=== PATIENT | female | born 1955 | race African-American/Black ===

== ENCOUNTER 2018-02-14 20:22 | Observation (INO) ==
--- NOTE | 2018-02-14 20:37 | PROVIDER DOCUMENTATION ---
HPI-Neurological Disorder - General Stated Complaint: POSS STROKE SX Time Seen by Provider: 02/14/18 20:36 Source: patient Allergies/Adverse Reactions: Patient Allergies Allergy/AdvReac Type Severity Reaction Status Date / Time No Known Allergies Allergy Verified 04/07/17 16:45 Home Medications: Home Medication List Medication Instructions Recorded Confirmed Last Taken Type Cilostazol 100 mg PO DAILY 03/30/14 04/14/17 04/07/17 History Docusate Sodium [Stool Softener] 100 mg PO DAILY 03/30/14 04/14/17 04/07/17 History Potassium Chloride [Klor-Con M20] 1 each PO DAILY 03/30/14 04/14/17 04/07/17 History Amlodipine Besylate 1 tab PO BID 02/17/17 04/14/17 04/07/17 History Gabapentin 600 mg PO TID 02/18/17 04/14/17 04/07/17 History Hydralazine [Apresoline] 75 mg PO TID #90 tab 03/08/17 04/14/17 04/07/17 Rx Pantoprazole [Protonix] 40 mg PO QPM #30 tab 03/08/17 04/14/17 04/06/17 Rx Apixaban [Eliquis] 5 mg PO DAILY 03/13/17 04/14/17 04/07/17 History Aspirin 81 mg PO DAILY chewtab 03/22/17 04/14/17 04/07/17 Rx Polyethylene Glycol 3350 [Miralax] 17 gm PO BID PRN 04/08/17 04/14/17 Unknown History Allopurinol 100 mg PO DAILY 04/13/17 04/13/17 Unknown History Furosemide 40 mg PO DAILY 04/13/17 04/13/17 Unknown History Metoprolol [Lopressor] 25 mg PO DAILY 04/13/17 04/13/17 Unknown History Acetaminophen [Tylenol] 650 mg PO Q6H PRN PRN tablet 04/20/17 Unknown Rx Hydrocodone/Acetaminophen [[place] 1 ea PO Q6H PRN PRN #40 tab 04/30/17 Unknown Rx 7.5-325 Tablet] Insulin Glargine [Lantus] 40 unit SUBQ QHS #1 insuln.pen 05/01/17 Unknown Rx - History of Present Illness-Neuro Nature of Presenting Problem: Patient is a 62 year old black female with history of CVA with residual left sided weakness,atrial fibrillation, CHF,diabetes, and HTN who presents with worsening generalized weakeness, anorexia, and reported slurred speech for past 1 week. Review of Systems - Adult - REVIEW OF SYSTEMS - ADULT Constitutional: denies: chills, fever Eyes: denies: blurred vision Ears, Nose, Mouth & Throat: reports: see HPI Cardiovascular: denies: chest pain, orthopnea Respiratory: denies: shortness of breath Gastrointestinal: denies: abdominal pain, diarrhea, vomiting Genitourinary: reports: no symptoms reported Musculoskeletal: reports: see HPI Integumentary: reports: other (chronic left diabetic heel ulcer) Psychiatric: reports: anxiety Endocrine: reports: see HPI Hematologic/Lymphatic: reports: no symptoms reported Allergic/Immunologic: reports: no symptoms reported All Other Systems: Reviewed and Negative Past History - Adult - PAST MEDICAL HISTORY-ADULT Review of Records: reports: Old Records Reviewed, Nursing Assessment Review, Medications Reviewed, Social history reviewed & non-contributory. Major Childhood Illnesses: reports: denies history Cardiovascular: reports: A-Fib, CHF, HTN Respiratory: reports: denies history Gastrointestinal: reports: denies history Obstetrical/Gynecological: reports: denies history Genitourinary: reports: denies history Musculoskeletal: reports: denies history Neurological: reports: CVA Endocrine/Immune: reports: Diabetes Other Conditions: reports: denies history - PRIOR SURGERIES/PROCEDURES Surgical/Procedure History: reports: other (right BKA) - IMMUNIZATION STATUS Childhood Immunizations: See Nurse Assessment Flu Vaccine: See Nurse Assessment - FAMILY HISTORY Family History: reviewed, not pertinent Physical Exam- Neurological - Physical Exam-Neuro General Appearance: alert, no apparent distress, obese, other (decreased skin turgor,dry membranes) Eye Exam: bilateral eye: PERRL HENMT: pharynx normal Head Injury: no evidence of injury Neck: supple Respiratory: lungs clear, no accessory muscle use, decreased breath sounds. negative: respiratory distress, accessory muscle use Cardiovascular: irregularly irregular Abdominal Exam: non tender, soft Peripheral Pulses: radial (R): 2+, radial (L): 2+ Extremity: other (chronic left heel ulcer) Motor/Sensory: other (weakness of left upper extremity (old)) Neurologic: other (left upper extremity weakness) Integumentary: normal color Psych/Mental Status: anxious - Glascow Coma Scale Best Eye Response: (4) open spontaneously Best Verbal Response: (5) oriented Best Motor Response: (6) obeys commands Total Glascow Score: 15 Progress - PLAN OF CARE/RESULTS Progress/Plan/Lab Results: Vital Signs - 8 hr 02/14/18 20:44 Pulse Rate 91 H Respiratory Rate 19 Blood Pressure 149/102 O2 Sat by Pulse Oximetry 95 Laboratory Results - last 24 hr 02/14/18 02/14/18 02/14/18 21:25 21:25 21:25 WBC 5.83 RBC 5.99 H Hgb 16.9 H Hct 51.2 H MCV 85.5 MCH 28.2 MCHC 33.0 RDW Std Deviation 13.5 Plt Count 213 MPV 13.2 H Immature Gran % (Auto) 0.3 Neut % (Auto) 55.8 Lymph % (Auto) 28.5 [place] % (Auto) 14.2 H Eos % (Auto) 0.7 Baso % (Auto) 0.5 Immature Gran # (Auto) 0.02 Neut # (Auto) 3.25 Lymph # (Auto) 1.66 [place] # (Auto) 0.83 H Eos # (Auto) 0.04 Baso # (Auto) 0.03 Sodium 132 L Potassium 4.2 Chloride 96 L Carbon Dioxide 23 L Anion Gap 13 BUN 31 H Creatinine 1.8 H Estimated GFR/1.73 m2 28 BUN/Creatinine Ratio 17 Glucose 242 H Calculated Osmolality 279 Calcium 9.2 Total Bilirubin 0.40 AST 46 H ALT 24 Alkaline Phosphatase 152 H Creatine Kinase Troponin T Total Protein 7.1 Albumin 2.6 L Globulin 5.0 Albumin/Globulin Ratio 1.0 Urine Source Urine Color Urine Clarity Urine pH Ur Specific [place] Urine Protein Urine Ketones Urine Blood Urine Nitrite Urine Bilirubin Urine Urobilinogen Urine Microscopic RBC Urine WBC Urine Microscopic WBC Ur Epithelial Cells Urine Bacteria Urine Glucose Influenza A (Rapid) NEGATIVE Influenza B (Rapid) NEGATIVE 02/14/18 02/14/18 02/14/18 21:25 21:25 21:25 WBC RBC Hgb Hct MCV MCH MCHC RDW Std Deviation Plt Count MPV Immature Gran % (Auto) Neut % (Auto) Lymph % (Auto) [place] % (Auto) Eos % (Auto) Baso % (Auto) Immature Gran # (Auto) Neut # (Auto) Lymph # (Auto) [place] # (Auto) Eos # (Auto) Baso # (Auto) Sodium Potassium Chloride Carbon Dioxide Anion Gap BUN Creatinine Estimated GFR/1.73 m2 BUN/Creatinine Ratio Glucose Calculated Osmolality Calcium Total Bilirubin AST ALT Alkaline Phosphatase Creatine Kinase 136 Troponin T 0.054 Total Protein Albumin Globulin Albumin/Globulin Ratio Urine Source CLEAN CATCH Urine Color YELLOW Urine Clarity VERY CLOUDY A Urine pH 5.0 Ur Specific [place] 1.015 Urine Protein 3+(500 mg/dL) A Urine Ketones NEGATIVE Urine Blood 1+ A Urine Nitrite NEGATIVE Urine Bilirubin NEGATIVE Urine Urobilinogen NORMAL Urine Microscopic RBC <10 Urine WBC NEGATIVE Urine Microscopic WBC <10 Ur Epithelial Cells <10 Urine Bacteria 4+ Urine Glucose 2+(250 mg/dL) A Influenza A (Rapid) Influenza B (Rapid) Orders Category Date Time Status CT HEAD W/O CONTRAST [CT] Stat Exams 02/14/18 20:37 Completed CBC WITH ELECTRONIC DIFF [HEME] Stat Lab 02/14/18 21:25 Completed CK PROFILE [SP CHEM] Stat Lab 02/14/18 21:25 Completed CMP [COMPREHENSIVE METABOLIC PANEL] [CHEM] Stat Lab 02/14/18 21:[address] Stat Lab 02/14/18 21:25 Completed TROPONIN T Stat Lab 02/14/18 21:[address] W/POSS RFLX CULT [URINALYSIS] Stat Lab 02/14/18 21:25 Completed URINE CULTURE [RM] Routine Lab 02/14/18 22:13 Ordered 0.9% Sodium Chloride Inj [Ns] 1,000 ml Med 02/14/18 23:45 Ordered IV 125 mls/hr 0.9% Sodium Chloride Inj [Ns] 1,000 ml Med 02/14/18 22:08 Discontinued IV 999 mls/hr Labetalol Med 02/14/18 23:43 Once 20 mg IV NOW ONE Result Diagrams: 02/14/18 21:25 02/14/18 21:25 - EKG 1 Time of EKG reading by physician:: 22:04 EKG Read and Signed by:: Tyler Foster EKG Interpretation (*Must complete 3 of following elements*): Abnormal Rate: 91 Rhythm: atrial fibrillation QRS: LVH ST Wave: non-specific ST changes Comments: prolonged QT, no STEMI, - CT/MRI 1 CT Study: Head CT Results: chronic ishemic changes - CONSULTS/PCP/HOSPITALIST Notification #1 *Consult/PCP/Hospitalist*: Dr. Brock, hospitalist Time Discussed: 23:45 Consult Disposition: Admit Departure - Departure Date of Disposition Decision: 02/14/18 Time of Disposition Decision: 23:50 DIAGNOSIS: Dehydration, Hypertensive urgency, Slurred speech Acute renal failure Qualifiers: Acute renal failure type: unspecified Qualified Code(s): N17.9 - Acute kidney failure, unspecified Disposition: ADMITTED INPATIENT 09 Certified Medical Emergency: Emergent Condition: Stable Referrals and Follow-Ups: Rama Mcrae MD [Primary Care Provider] - - Critical Care Note This patient required my direct & personal management of CC.: No Attestation - Physician/ CHRISTIANO Attestation Patient care was provided by Advanced Practice Provider:: No The physician spent face to face time with patient:: Yes Advanced Practice Provider documentation review:: Supervising physician onsite and consulted in the evaluation and care of this patient. The physician did have a face to face encounter with the patient. - NIH Stroke Scale NIH Type: Initial Evaluation Level of Consciousness: 0-Alert LOC Questions (ask month and age): 0-Answers Both Correctly LOC Commands (ask to open & close eyes;make a fist, let go): 0-Obeys Both Correctly Best Gaze (horizontal eye movement): 0-Normal Visual (use finger movement, counting or visual threat): 0-No Visual Loss Facial Palsy (show teeth or raise eyebrows & close eyes tght: 0-Symmetrical Movement Motor Function-left arm: 2-Some Effort Against [place] Motor Function-right arm: 0-Normal Motor Function-right le-Normal Limb Ataxia([id number], or heel to ghosh): 0-No Ataxia Sensory(pin prick to face,arms,trunk,legs-compare side/side): 0-No Ataxia Best Language(name item/read sentence.Ex-Down to Earth): 0-No Aphasia Dysarthria(Pt read words or say words Ex.Mama,Tip-Top,Thanks: 1-Mild-Mod Slurring Words Extinction and Inattention: 0-Normal NIH Total Score: 3 Modified Lalo Score Criteria: 0-no symptoms
--- NOTE | 2018-02-14 21:20 | Diag Imaging Result Doc PS360 ---
EXAM: CT HEAD W/O CONTRAST - 02/14/2018 HISTORY: slurred speech TECHNIQUE: CT head without contrast COMPARISON: 03/04/2017 FINDINGS: There is encephalomalacia at the right occipital lobe similar to prior and compatible with old infarct. There are chronic microvascular ischemic changes. There is a 1.3 cm lacunar infarct at the left centrum semiovale which is more conspicuous compared to prior, but has well demarcated appearance suggesting otherwise old infarct. There is no acute-appearing infarct identified, although acute infarcts may not be immediately visible. There are atherosclerotic calcifications noted at the base the brain. There is no evidence of intracranial hemorrhage, mass effect, or midline shift. IMPRESSION: Chronic ischemic changes. No discrete acute process. No hemorrhage or mass effect. This exam was performed using automated exposure control, adjustment of mA or kV according to patient size, and/or use of iterative reconstruction technique. Electronically signed by Keven Medrano 02/14/2018 9:18 PM
[2018-02-14 21:42] LABS: BASO# 0.03 X1000 (0.0-0.2); BASO% 0.5 % (0.0-0.8); EOS# 0.04 X1000 (0.0-0.7); EOS% 0.7 % (0.0-10.0); HEMATOCRIT 51.2 % (37.0-47.0); HEMOGLOBIN 16.9 g/dL (12.0-16.0); IMM GRAN# 0.02 X1000 (0.0-0.04); IMM GRAN% 0.3 % (0.0-0.5); LYMPH# 1.66 X1000 (1.2-3.4); LYMPH% 28.5 % (20.5-51.1); MCH 28.2 PG (27-31); MCV 85.5 FL (81-99); MONO# 0.83 X1000 (0.11-0.59); MONO% 14.2 % (1.7-9.3); MPV 13.2 FL (7.4-10.4); NEUT# 3.25 X1000 (1.4-6.5); NEUT% 55.8 % (42.2-75.2); PLT 213 X1000 (130-400); RBC 5.99 XMIL (4.2-5.4); RDW 13.5 % (11.5-14.5); WBC 5.83 X1000 (4.8-10.8)
[2018-02-14 22:03] LABS: INFLUENZA A NEGATIVE (NEGATIVE); INFLUENZA B NEGATIVE (NEGATIVE)
[2018-02-14] MEDS ORDERED: NS 1,000 ML IV ONE ×2 (22:08→23:45)
[2018-02-14 22:12] LABS: BILIRUBIN URINE NEGATIVE (NEGATIVE); BLOOD URINE 1+ (NEGATIVE); CLARITY VERY CLOUDY (CLEAR); COLOR YELLOW; KETONE URINE NEGATIVE (NEGATIVE); LEUKOCYTES URINE NEGATIVE (NEGATIVE); NITRITE URINE NEGATIVE (NEGATIVE); SP GRAVITY URINE 1.015; URINE BACTERIA 4+ /HFP; URINE SOURCE CLEAN CATCH; UROBILINOGEN URINE NORMAL
[2018-02-14 22:13] LABS: ALBUMIN 2.6 g/dL (3.5-5.0); CALCIUM 9.2 mg/dL (8.8-10.2); CREATININE 1.8 mg/dL (0.5-0.9); POTASSIUM 4.2 mmol/L (3.5-5.1); TOTAL BILIRUBIN 0.4 mg/dL (0.20-1.00); TOTAL PROTEIN 7.1 g/dL (6.3-8.3); URINE EPITHELIAL CELLS <10 /HPF (<10); URINE RBC <10 /HPF (<10); URINE WBC <10 /HPF (<10)
[2018-02-14] MEDS ORDERED: LABETALOL IV ONE (23:43)
--- NOTE | 2018-02-15 00:56 | EKG Report ---
Test Performed on : 02/14/2018 10:03:56 PM Test Reason : cp Blood Pressure : / mmHG Vent. Rate : 091 BPM Atrial Rate : 096 BPM P-R Int : 000 ms QRS Dur : 084 ms QT Int : 400 ms P-R-T Axes : 000 051 244 degrees QTc Int : 492 ms Atrial fibrillation. Moderate voltage criteria for LVH, may be normal variant Marked ST abnormality, possible anterior subendocardial injury Prolonged QT Abnormal ECG When compared with ECG of 13-MAR-2017 18:16, Vent. rate has increased BY 34 BPM T wave inversion more evident in Lateral leads QT has lengthened Unconfirmed Result
[2018-02-15 09:15] LABS: BASO# 0.03 X1000 (0.0-0.2); BASO% 0.5 % (0.0-0.8); EOS# 0.06 X1000 (0.0-0.7); HEMOGLOBIN 15.7 g/dL (12.0-16.0); IMM GRAN# 0.01 X1000 (0.0-0.04); IMM GRAN% 0.2 % (0.0-0.5); LYMPH# 1.79 X1000 (1.2-3.4); LYMPH% 30.3 % (20.5-51.1); MCH 28.6 PG (27-31); MCHC 32.7 g/dL (33-37); MCV 87.6 FL (81-99); MONO# 0.81 X1000 (0.11-0.59); MONO% 13.7 % (1.7-9.3); NEUT# 3.21 X1000 (1.4-6.5); NEUT% 54.3 % (42.2-75.2); PLT 156 X1000 (130-400); RBC 5.48 XMIL (4.2-5.4); RDW 13.4 % (11.5-14.5); WBC 5.91 X1000 (4.8-10.8)
[2018-02-15 09:29] LABS: CALCIUM 8.3 mg/dL (8.8-10.2); CREATININE 1.3 mg/dL (0.5-0.9); POTASSIUM 2.9 mmol/L (3.5-5.1)
[2018-02-15] MEDS ORDERED: TYLENOL PO PRN (10:35)
[2018-02-15] MEDS ORDERED: MIRALAX PO PRN (10:35)
[2018-02-15] MEDS ORDERED: KLOR-CON PO ONE (10:47)
[2018-02-15] MEDS: LOPRESSOR PO SCH (11:05)
[2018-02-15] MEDS: ELIQUIS PO SCH ×2 (11:05→20:23)
[2018-02-15] MEDS: NORVASC PO SCH (11:06)
[2018-02-15] MEDS: ZYLOPRIM PO SCH (11:06)
[2018-02-15] MEDS: PLETAL PO SCH (11:06)
--- NOTE | 2018-02-15 11:33 | HISTORY AND PHYSICAL ---
PRIMARY CARE PHYSICIAN: Dr. Mcrae. CHIEF COMPLAINT: Worsening generalized weakness, anorexia, and slurred speech for 1 week that has progressively worsened. HISTORY OF PRESENTING ILLNESS: This is a 62-year-old female, who presents to [facility] ER with complaints of generalized worsening weakness, anorexia, and some slurred speech for 1 week that had progressively worsened. She has had a history of a CVA x1 in the past with left hemiplegia and uses an electric wheelchair at home for mobility. When she arrived to the emergency room, her blood pressure was 149/102. It got as high as 181/87. Her workup showed a sodium of 132, BUN of 31, creatinine 1.8. We did recheck of labs this morning that showed a potassium had dropped down to 2.90. Her urinalysis showed 4+ bacteria but otherwise negative. We did a CT of the head that was read as chronic ischemic changes, but no discrete acute process no hemorrhage or mass effect. She was admitted for further evaluation and treatment. PAST MEDICAL HISTORY: Chronic diabetic left heel ulcer that has had osteomyelitis in the past, AFib, diastolic congestive heart failure, peripheral arterial disease, a CVA with left hemiplegia, diabetes type 2, and chronic gout. PAST SURGICAL HISTORY: Port placement, right BKA, left heel debridement, cholecystectomy, and a left carotid endarterectomy. FAMILY HISTORY: Reviewed and noncontributory. SOCIAL HISTORY: She currently lives alone, but family checks on her daily. Denied any tobacco, alcohol, or illicit drug use. ALLERGIES: She has no known drug allergies. HOME MEDICATIONS: We will hold her Lasix 40 mg p.o. daily. Continue the following: Tylenol 650 mg p.o. q.6 hours p.r.n., allopurinol 100 mg p.o. daily, amlodipine 5 mg p.o. daily, Apixaban 5 mg p.o. b.i.d., cilostazol 100 mg p.o. daily, gabapentin 600 mg p.o. t.i.d., Lantus 40 units subcutaneous at bedtime, Lopressor 25 mg p.o. daily, MiraLAX 17 g p.o. daily, potassium 20 mEq p.o. daily. LABORATORY DATA: Showed a white blood cell count of 5.83, hemoglobin 16.9, hematocrit 51.2, platelets 213,000. Sodium 132, potassium 4.2, chloride 96, CO2 23, BUN of 31, creatinine 1.8. Glucose 242. Cardiac enzyme was negative. Repeat BMP this morning showed a sodium up to 138, but potassium dropped to 2.9. Creatinine is down to 1.3 with a BUN of 23, glucose 160. Urinalysis was negative except for 4+ bacteria. Influenza A and B were both negative. CT of the head showed chronic ischemic changes. No discrete acute process. No hemorrhage or mass effect. EKG: Atrial fibrillation at 91. REVIEW OF SYSTEMS: She denied any fever, chills, blurred vision, dizziness. She just had generalized weakness, some anorexia, some slurred speech. She denied any chest pain, coughing, shortness of breath abdominal pain, diarrhea, burning, or hurting with urination. PHYSICAL EXAMINATION: VITAL SIGNS: On arrival, she had a pulse of 91, respirations 19, blood pressure 149/102, saturating 95% on room air. GENERAL: This is a 62-year-old female, who is lying in the bed and answers questions appropriately. HENMT: Normocephalic, atraumatic. Normal ENT inspection. Oropharynx and nares are clear. Speech is clear at this time. No slurring noted. EYES: Pupils are equal, round, reactive to light and accommodation. Extraocular movements are intact. NECK: Normal inspection, normal range of motion. LUNGS: Clear to auscultation bilaterally with equal lung expansion and chest wall movement. HEART: Irregular rate and rhythm with atrial fibrillation, but is rate controlled, currently at 78. ABDOMEN: Soft, nontender, and nondistended. Bowel sounds are present x4 quadrants. MUSCULOSKELETAL: She has hemiparesis on the left side, but able to move her right side without difficulty. NEUROLOGICAL: She is at her baseline. Again, left-sided hemiparesis. ASSESSMENT: 1. Transient ischemic attack versus cerebrovascular accident. 2. Hypertension. 3. Acute kidney injury. 4. Dehydration. 5. Hypokalemia. PLAN: She was admitted to the medical unit, placed on pattern blood sugars with sliding scale insulin. Placed on telemetry. O2 per protocol. Neuro checks q.4 hours for 24 hours. Diabetic diet. We are going to check an MRI of the brain without contrast today. She has clonidine 0.1 mg p.o. q.4 hours p.r.n. Continue her home medications as previously identified. We are going to add a potassium 40 mEq p.o. x1 to her 20 mEq daily to equal 60. Recheck labs of a CBC, BMP in the a.m., and further orders after seen by attending. Dictated by NABIL Gray for Louis Brock MD cc: NABIL Gray MD Bhavna Gowda, MD
[2018-02-15] MEDS: NEURONTIN PO SCH ×2 (14:35→21:54)
--- NOTE | 2018-02-15 14:58 | Diag Imaging Result Doc PS360 ---
MRI BRAIN W/O CONTRAST - 02/15/2018 INDICATION: TIA vs CVA COMPARISON: Head CT 02/14/2018, brain MRI 03/05/2017 FINDINGS: There are numerous tiny scattered foci of restricted diffusion scattered throughout the cerebral hemispheres bilaterally. These are mainly in the watershed areas, in the cerebral deep white matter. No intracranial mass or hemorrhage. Stable old infarction with gliosis at the posterior right occipital lobe. Stable advanced periventricular white matter chronic microvascular disease. Midline structures are normal. IMPRESSION: There are numerous tiny areas of infarction mainly in the watershed areas of the cerebral hemispheres. This is compatible with insufficient cerebral perfusion. Electronically signed by Greg Salas 02/15/2018 2:56 PM
[2018-02-15] MEDS: NS 1,000 ML IV SCH (19:00)
[2018-02-15] MEDS: ASPIRIN EC PO SCH (19:00)
[2018-02-15] MEDS: BASAGLAR SUBQ SCH (20:23)
[2018-02-15] MEDS: HUMULIN R (PARKWAY) SUBQ SCH (20:24)
--- NOTE | 2018-02-15 23:54 | HISTORY AND PHYSICAL ---
ADDENDUM: Patient coming in for worsening weakness and dysarthria. She is very pleasant, very awake, alert. She seems fine. No major history. She does have a history of CVA. Her workup was really unremarkable. Nurse practitioner has evaluated her prior to my evaluation and has ordered an MRI which unfortunately shows multiple small areas of infarction, consistent with cerebral hypoperfusion. Clinically, though, she really does not have a change from her baseline exam, and she came in very dehydrated. I am not even sure this is related to hypotension, but in any case, clinically she seems well. We will continue hydration. I think she needs some further hydration. I think she probably needs CT angiography once we can get that established, hopefully by tomorrow, and carotid and echo if those have not been done in the last 6 months. We also need to continue anti-platelet therapy, and we will continue to monitor closely. She is already on Eliquis. I am not even really sure what else we can add, possibly a low-dose aspirin, and continue to follow. Her exam is nonfocal except for left-sided hemiparesis which is her usual state. Disposition is pending her clinical status. [id number] encounter note with Rahel Nance. cc: Louis Brock MD
[2018-02-16] MEDS: NS 1,000 ML IV SCH ×3 (04:31→18:40)
[2018-02-16] MEDS: NEURONTIN PO SCH ×4 (05:23→22:00)
[2018-02-16] MEDS: HUMULIN R (PARKWAY) SUBQ SCH ×5 (06:56→22:01)
[2018-02-16 07:07] LABS: HEMOGLOBIN A1C 6.9 % (4.8-6.0)
[2018-02-16 07:15] LABS: CALCIUM 8.3 mg/dL (8.8-10.2); POTASSIUM 2.9 mmol/L (3.5-5.1)
[2018-02-16 07:20] LABS: BASO# 0.03 X1000 (0.0-0.2); BASO% 0.5 % (0.0-0.8); EOS% 1.7 % (0.0-10.0); HEMATOCRIT 46.8 % (37.0-47.0); HEMOGLOBIN 15.2 g/dL (12.0-16.0); IMM GRAN# 0.01 X1000 (0.0-0.04); IMM GRAN% 0.2 % (0.0-0.5); LYMPH# 2.07 X1000 (1.2-3.4); LYMPH% 36.1 % (20.5-51.1); MCH 28.5 PG (27-31); MCHC 32.5 g/dL (33-37); MCV 87.8 FL (81-99); MONO# 0.67 X1000 (0.11-0.59); MONO% 11.7 % (1.7-9.3); MPV 13.2 FL (7.4-10.4); NEUT# 2.85 X1000 (1.4-6.5); NEUT% 49.8 % (42.2-75.2); PLT 168 X1000 (130-400); RBC 5.33 XMIL (4.2-5.4); RDW 13.4 % (11.5-14.5); WBC 5.73 X1000 (4.8-10.8)
[2018-02-16] MEDS: ZYLOPRIM PO SCH (10:13)
[2018-02-16] MEDS: PLETAL PO SCH (10:13)
[2018-02-16] MEDS: NORVASC PO SCH (10:13)
[2018-02-16] MEDS: LOPRESSOR PO SCH (10:13)
[2018-02-16] MEDS: ELIQUIS PO SCH ×2 (10:14→22:00)
[2018-02-16] MEDS: ASPIRIN EC PO SCH (10:14)
[2018-02-16] MEDS: KLOR-CON PO SCH (10:14)
[2018-02-16] MEDS: CATAPRES PO PRN (11:17)
--- NOTE | 2018-02-16 18:26 | ECHO REPORT ---
ORDER DATE: 02/16/2018 MEASUREMENTS: Left ventricular end-diastolic 3.8, end systolic diameter 2.6, septal thickness 1.2, posterior wall thickness 1.1, aortic root 2.8, left atrium 4.5. SUMMARY: 1. Fair quality study. 2. Very mild sclerosis of trileaflet aortic valve demonstrated with adequate aortic valve opening suggested on 2-dimensional images. Peak gradient across aortic valve was less than 10 mmHg. Mild to moderate mitral annular calcification is demonstrated. There is very mild mitral regurgitation. Tricuspid and pulmonic valves are without evidence of structural abnormality with mild to moderate tricuspid regurgitation. Estimated systolic PA pressure by Doppler is 55 to 60 mmHg suggesting moderate pulmonary hypertension. Aortic root is normal size. 3. Normal left ventricular chamber size with mild concentric left hypertrophy is demonstrated. Estimated left ventricular ejection fraction appears to be approximately 60%. No regional wall motion abnormalities are evident. Left atrium is mild to moderately enlarged. Right atrium is mildly enlarged. The right ventricle is normal in size with grossly preserved right ventricular systolic function. 4. No pericardial effusion. 5. Appearance of inferior vena cava suggests normal central venous pressure. 6. Rhythm during study appears to be atrial fibrillation. cc: MD Louis Ybarra MD
[2018-02-16] MEDS ORDERED: KLOR-CON PO ONE (19:00)
[2018-02-16] MEDS: BASAGLAR SUBQ SCH (22:00)
[2018-02-17] MEDS: NEURONTIN PO SCH (06:54)
[2018-02-17 07:27] LABS: BASO# 0.02 X1000 (0.0-0.2); BASO% 0.3 % (0.0-0.8); EOS# 0.08 X1000 (0.0-0.7); EOS% 1.1 % (0.0-10.0); HEMATOCRIT 46.2 % (37.0-47.0); HEMOGLOBIN 14.7 g/dL (12.0-16.0); IMM GRAN# 0.02 X1000 (0.0-0.04); IMM GRAN% 0.3 % (0.0-0.5); LYMPH# 2.26 X1000 (1.2-3.4); LYMPH% 32.4 % (20.5-51.1); MCH 28.2 PG (27-31); MCHC 31.8 g/dL (33-37); MCV 88.7 FL (81-99); MONO% 11.5 % (1.7-9.3); MPV 12.9 FL (7.4-10.4); NEUT% 54.4 % (42.2-75.2); PLT 205 X1000 (130-400); RBC 5.21 XMIL (4.2-5.4); RDW 13.5 % (11.5-14.5); WBC 6.98 X1000 (4.8-10.8)
[2018-02-17] MEDS: HUMULIN R (PARKWAY) SUBQ SCH ×2 (07:41→11:39)
[2018-02-17 08:06] LABS: AGAP 14; BUN 13 mg/dL (8-22); CALCIUM 8.3 mg/dL (8.8-10.2); CHLORIDE 104 mmol/L (98-107); CHOLESTEROL 267 mg/dL (0-200); COSMO 281; CREATININE 0.9 mg/dL (0.5-0.9); ESTIMATED GFR > 60; GLUCOSE 52 mg/dL (70-104); HDL 50 mg/dL (45-65); LDL 196 mg/dL; POTASSIUM 3.6 mmol/L (3.5-5.1); SODIUM 142 mmol/L (136-145); TCO2 24 mmol/L (25-35); TRIGLYCERIDES 104 mg/dL (35-135); VLDL 21 mg/dL
[2018-02-17] MEDS: PLETAL PO SCH (08:57)
[2018-02-17] MEDS: CATAPRES PO PRN (08:57)
[2018-02-17] MEDS: ELIQUIS PO SCH (08:57)
[2018-02-17] MEDS: LOPRESSOR PO SCH (08:57)
[2018-02-17] MEDS: KLOR-CON PO SCH (08:57)
[2018-02-17] MEDS: ZYLOPRIM PO SCH (08:57)
[2018-02-17] MEDS: ASPIRIN EC PO SCH (08:58)
--- NOTE | 2018-02-17 09:58 | Diag Imaging Result Doc PS360 ---
EXAM: CT ANGIOGRAM HEAD 02/17/2018 HISTORY: cva TECHNIQUE: This exam was performed using automated exposure control, adjustment of mA or kV according to patient size, and/or use of iterative reconstruction technique. COMMENT: 3-D MIPS were performed. There is an air-fluid level in the left sphenoid sinus which was not present on 02/14/2018. There is also opacification of multiple ethmoid air cells which was not the case previously. There is calcification in the left vertebral and both internal carotid arteries. Compared to the previous noncontrast CT of the head, there is no evidence of bleed, mass effect, or abnormal extra-axial fluid collection in the overall appearance the brain has not changed significantly. There is opacification of both middle cerebral arteries, both anterior cerebral arteries, the right vertebral and basilar arteries and both proximal posterior cerebral arteries. The P1 segment of the left posterior cerebral artery is not demonstrated and the vessel is supplied primarily by the posterior communicating artery. Both anterior cerebral arteries are patent. The distal portion of the posterior cerebral arteries is not well demonstrated. There is no evidence of aneurysm. 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 Otherwise no evidence of major branch occlusion. The possibility of peripheral or small vessel occlusion cannot be excluded on the basis of this study. Chronic ischemic changes as described previously. Left sphenoid and bilateral ethmoid sinusitis. Electronically signed by Fan Maradiaga 02/17/2018 9:55 AM
[2018-02-17 12:19] VITALS: BP 161/114
[2018-02-17] MEDS: NS 1,000 ML IV SCH (12:43)
--- NOTE | 2018-02-17 12:46 | PROGRESS NOTE ---
DATE: 02/16/2018 SUBJECTIVE: She looks well. No major complaints. No focal issues. OBJECTIVE: Vitals: Blood pressure 166/111, heart rate 93, respiratory rate 18, temperature 95 degrees, 100% on room air. Cardiovascular: Regular rate and rhythm. Pulmonary: Bilateral breath sounds. Clear to auscultation. GI: Soft, nontender, nondistended. Bowel sounds are positive. LABORATORY DATA: White count was 5, hemoglobin and hematocrit 15 and 44, platelets 168,000. Her basic shows low potassium. PROBLEM LIST: 1. Acute ischemic cerebrovascular accident. We will continue workup. Her echo was unremarkable. Carotid is pending. We will pursue a CT angiogram. She is already on Eliquis, really not sure what else to add except we will go and give her some low-dose aspirin and check lipid level. 2. Atrial fibrillation. Aware diagnosis. She is rate controlled. Continue medications. 3. Diabetes is stable. DISPOSITION: I think if she is doing well into tomorrow, she has a baseline left hemiparesis, that she should be able to go home. Follow up closely with PCP. Consider evaluation with Neurology for prolonged issues. Continue to follow. cc: Louis Brock MD
--- NOTE | 2018-02-17 14:46 | DISCHARGE SUMMARY ---
ADMISSION DATE: 02/15/2018 DISCHARGE DATE: 02/17/2018 DISCHARGE DIAGNOSES: 1. Acute ischemic cerebrovascular accident. 2. Hypertension. 3. History of cerebrovascular accident with a left hemiplegia. 4. Diastolic heart failure. 5. Atrial fibrillation. 6. Diabetes. HOSPITAL COURSE: Briefly, this is a 62-year-old female. She came in with some weakness and anorexia and dysarthria. She has multiple medical complaints. She is paralyzed pretty much on the left side and uses a wheelchair. There was not really a focal deficit there. She had some kidney insufficiency as well. CT was negative; however, her MRI showed on the 4th multiple areas of infarction in the watershed areas with concerning over cerebral hypoperfusion. She came in significantly dehydrated. Her hemoglobin and hematocrit was 16 and 51. Her chemistry showed a BUN and creatinine of 31 and 1.8, so she improved very well with hydration. The rest of her workup was unremarkable. Echo showed mild to moderate TR. EF was 60%, really unremarkable otherwise. She is already on Eliquis, so I am not sure 5 b.i.d., but in any case she was admitted for treatment. She clinically improved. We did a CT angiogram, which showed no significant occlusion except absence of the left P1 segment. She had some level of sinus infection, too. Other than that, really had no major issues. We checked an LDL on her and her total cholesterol was 267. Her LDL was 196 and that was fasting. She is not on any statin therapy. I am not sure if she has been intolerant, but she has already had a stroke #1 and now she has had another stroke, so I went ahead and started her on Lipitor 40. She may need further adjustment. DISCHARGE MEDICATIONS: 1. Allopurinol 100 daily. 2. Amlodipine 5 daily. 3. Eliquis 5 b.i.d. 4. Pletal 100 daily. 5. Gabapentin 600 t.i.d. 6. Lopressor 25 daily. 7. MiraLAX 17 b.i.d. 8. Klor-Con 20 daily. 9. Lipitor 40 daily. 10. Lantus 40 daily. Tylenol p.r.n. 11. Aspirin enteric-coated 81 daily. DISCHARGE CONDITION: Stable. FOLLOWUP: Follow up with Dr. Henley because she has had recurrent stroke, although I do not really think she is very compliant. She has not really been on appropriate...if she has not been on statin therapy and reviewing her outpatient pharmacy record, there is no statin. She really should be on a statin. We will continue to follow. Follow up with her PCP, too, Dr. Mcrae. TIME SPENT: 35 minute discharge. cc: Louis Brock MD
--- NOTE | 2018-02-18 09:27 | PROGRESS NOTE ---
DATE: 02/16/2018 SUBJECTIVE: Patient has no focal complaints. OBJECTIVE: Blood pressure is 146/95, heart rate 77, respiratory rate of 17, temperature is 97.7 degrees.Cardiovascular: Regular rate and rhythm. Pulmonary: Bilateral breath sounds. Clear to auscultation. GI: Was soft, nontender, nondistended. Bowel sounds are positive. Extremity: No clubbing or cyanosis. Lymphatic: No peripheral edema. Neurological: Nonfocal except for left upper extremity weakness, left lower extremity weakness which is at her baseline. LABORATORY DATA: White count is 5, hemoglobin and hematocrit 15 and 46, platelets 168,000. Potassium is 2.9. PROBLEM LIST: 1. Acute ischemic cerebrovascular accident. She has several small areas of infarction consistent with cerebral hypoperfusion since they are in watershed areas but she has had a stroke acute ischemic stroke. We will continue treatment. She is on an aspirin. She is already on apixaban which we will probably need to resume, question is when to resume it, well no she is still on it. We have not stopped it and she is on a baby aspirin which she was not on previously so we will kind of see how she does. 2. We will get echocardiogram and carotid Dopplers as part of her workup and follow. 3. Acute kidney injury. She seems to be better. She was fairly dehydrated when she came in, her kidney function is now normal or near normal. We will continue hydration and monitor. I am going to pursue CT angiogram tomorrow and see how she does. 4. Diabetes, continue regular medications and follow. 5. Allow permissive hypertension as tolerated. DISPOSITION: Pending her clinical status anticipate discharge within the next 1 to 2 days. Her diabetes actually pretty well controlled. cc: Louis Brock MD
== END 2018-02-17 13:53 | disposition home health service (06) ==
LOC: P.ED 20:22 → P.EDIPHOLD 20:22 → OBSVTOIN 02-15 00:59 → INTOOBSV 02-15 00:59 → P.MEDSURG 02-15 08:28
PROVIDERS: ATTEND Internal Medicine
CPT/HCPCS: 51701; 51702; 51798; 70450; 70496; 70551; 80048; 80053; 80061; 81001; 82550; 82948; 83036; 84484; 85025; 87077; 87088; 87186; 87275; 87276; 87804; 93005; 93306; 93880; 94761; 96361; 96374; 99285; A9270; G0378; J1815; J7030; P9612; Q9967; XXXXX

== ENCOUNTER 2018-03-18 14:44 | Inpatient (IN) ==
[2018-03-18 15:49] LABS: URINE SOURCE CATH
--- NOTE | 2018-03-18 15:51 | Diag Imaging Result Doc PS360 ---
EXAM: CHEST-PORTABLE HISTORY: syncopal TECHNIQUE: Chest single view COMPARISON: 03/13/2017 FINDINGS: The lungs are well expanded. The heart is not enlarged. The vessels are not distended. There are no infiltrates. No effusion identified. The right hemidiaphragm is mildly elevated. IMPRESSION: Negative exam. Electronically signed by Hal Tovar 03/18/2018 3:49 PM
[2018-03-18] MEDS ORDERED: LOPRESSOR IV ONE (16:08)
[2018-03-18] MEDS ORDERED: APRESOLINE IV ONE (16:16)
[2018-03-18 16:22] LABS: BILIRUBIN URINE NEGATIVE (NEGATIVE); BLOOD URINE MODERATE (NEGATIVE); COLOR YELLOW; GLUCOSE URINE 1000 mg/dL (NEGATIVE); KETONE URINE 10 mg/dL (NEGATIVE); LEUKOCYTES URINE NEGATIVE (NEGATIVE); NITRITE URINE NEGATIVE (NEGATIVE); PH URINE 6.5; PROTEIN URINE >600 mg/dL (NEGATIVE); SP GRAVITY URINE 1.017; TURBIDITY URINE HAZY (CLEAR); UR EPITHELIAL CELLS <10 /HPF (<10); URINE BACTERIA 4+ /HPF; URINE RBC <10 /HPF (<10); URINE WBC <10 /HPF (<10); UROBILINOGEN URINE NORMAL (NORMAL)
[2018-03-18] MEDS ORDERED: CARDIZEM IV ONE (16:53)
--- NOTE | 2018-03-18 16:59 | PROVIDER DOCUMENTATION ---
This chart was entered by Yuliana Rodrigues Scribe, acting as scribe for Rashid Cruz MD. HPI-Neurological Disorder - General Source: patient, RN/ (RN) - History of Present Illness-Neuro Severity: reports: mild Onset/Duration: reports: unsure Timing: reports: still present Context: reports: other (AMS) Character of Altered Mental Status: reports: disoriented, confused Gait Baseline: unable to walk Associated Symptoms: reports: denies symptoms Similar Symptoms Previously?: No Recently seen or treated by another doctor?: No <Rashid Cruz - Last Filed: 03/18/18 16:59> <Jas Mcintosh - Last Filed: 03/18/18 19:18> - General Chief Complaint: Altered Mental Status Stated Complaint: AMS Time Seen by Provider: 03/18/18 15:10 Allergies/Adverse Reactions: Patient Allergies Allergy/AdvReac Type Severity Reaction Status Date / Time No Known Allergies Allergy Verified 04/07/17 16:45 Home Medications: Home Medication List Medication Instructions Recorded Confirmed Last Taken Type Cilostazol 100 mg PO DAILY 03/30/14 02/15/18 04/07/17 History Potassium Chloride [Klor-Con M20] 1 each PO DAILY 03/30/14 02/15/18 04/07/17 History Amlodipine Besylate 1 tab PO DAILY 02/17/17 02/15/18 04/07/17 History Gabapentin 600 mg PO TID 02/18/17 02/15/18 04/07/17 History Apixaban [Eliquis] 5 mg PO BID 03/13/17 02/15/18 04/07/17 History Polyethylene Glycol 3350 [Miralax] 17 gm PO BID PRN 04/08/17 02/15/18 Unknown History Allopurinol 100 mg PO DAILY 04/13/17 02/15/18 Unknown History Metoprolol [Lopressor] 25 mg PO DAILY 04/13/17 02/15/18 Unknown History Acetaminophen [Tylenol] 650 mg PO Q6H PRN PRN tablet 04/20/17 02/15/18 Unknown Rx Insulin Glargine [Lantus] 40 unit SUBQ QHS #1 insuln.pen 05/01/17 02/15/18 Unknown Rx Sodium Chloride [Normlgel] 15 gm TP DAILY 02/15/18 02/15/18 02/14/18 History ATORVAstatin [Lipitor] 40 mg PO QHS #30 tab 02/17/18 Unknown Rx Aspirin EC 81 mg PO DAILY #30 tab 02/17/18 Unknown Rx - History of Present Illness-Neuro Nature of Presenting Problem: Patient is a 62 year old female who presents to the ED with altered mental status. RN states EMS stated home health found patient on the floor and patient was altered. Patient denies pain. Patient is currently oriented to person and place. Patient states history of CVA. (Yuliana Rodrigues) Patient is a 62 year old female who presents to the ED with altered mental status. RN states EMS stated home health found patient on the floor and patient was altered. Patient denies pain. Patient is currently oriented to person and place. Patient states history of CVA. (Rashid Cruz) Review of Systems - Adult - REVIEW OF SYSTEMS - ADULT Constitutional: reports: no symptoms reported Eyes: reports: no symptoms reported Ears, Nose, Mouth & Throat: reports: no symptoms reported Cardiovascular: reports: no symptoms reported Respiratory: reports: no symptoms reported Gastrointestinal: reports: no symptoms reported Genitourinary: reports: no symptoms reported Musculoskeletal: reports: no symptoms reported Integumentary: reports: no symptoms reported Neurological: reports: other (AMS - disoriented and confused). denies: dizziness/vertigo, headache/migraines, numbness, seizure, syncope Psychiatric: reports: no symptoms reported Endocrine: reports: no symptoms reported Hematologic/Lymphatic: reports: no symptoms reported Allergic/Immunologic: reports: no symptoms reported All Other Systems: Reviewed and Negative <Rashid Cruz - Last Filed: 03/18/18 16:59> Past History - Adult - PAST MEDICAL HISTORY-ADULT Review of Records: reports: Nursing Assessment Review, Medications Reviewed, Social history reviewed & non-contributory. Major Childhood Illnesses: reports: denies history Cardiovascular: reports: A-Fib, CHF, HTN Respiratory: reports: denies history Gastrointestinal: reports: denies history Obstetrical/Gynecological: reports: denies history Genitourinary: reports: denies history Musculoskeletal: reports: denies history Neurological: reports: CVA Endocrine/Immune: reports: Diabetes Other Conditions: reports: denies history - PRIOR SURGERIES/PROCEDURES Surgical/Procedure History: reports: reviewed, not pertinent, other (right BKA) - IMMUNIZATION STATUS Childhood Immunizations: See Nurse Assessment Flu Vaccine: See Nurse Assessment - FAMILY HISTORY Family History: reviewed, not pertinent - SOCIAL HISTORY Smoking: denies Substance Use: denies Living Situation: alone <Rashid Cruz - Last Filed: 03/18/18 16:59> Physical Exam- Neurological - Physical Exam-Neuro General Appearance: alert, no apparent distress Eye Exam: bilateral eye: normal inspection HENMT: other (dry mucous membranes) Head Injury: no evidence of injury Neck: normal inspection Respiratory: chest non-tender, lungs clear, normal breath sounds Cardiovascular: normal peripheral pulses, tachycardia Abdominal Exam: normal bowel sounds, non tender, soft Peripheral Pulses: dorsalis-pedis (R): 0, dorsalis-pedis (L): 0 Extremity: other (right AKA. decubitus ulcer to left heel. 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 oriented to person and place) Integumentary: other (decubitus ulcer to left heel. neurotic ischemic changes present to dorsum of left foot with gangrenous toes.) Psych/Mental Status: normal mood/affect, other (disoriented to time. oriented to person and place) <Rashid Cruz - Last Filed: 03/18/18 16:59> Progress - PLAN OF CARE/RESULTS Result Diagrams: 03/18/18 15:20 - EKG 1 Time of EKG reading by physician:: 15:51 EKG Read and Signed by:: Rashid Cruz EKG Interpretation (*Must complete 3 of following elements*): Abnormal (rhythm - atrial fibrillation with rapid ventricular response with premature ventricular or aberrantly conducted complexes.) Rate: 142 Comments: marked ST abnormality, possible inferolateral subednocardial injury - XRAY 1 XRAY Study: Chest Impression: See EMR Report ( EXAM: CHEST-PORTABLE HISTORY: syncopal TECHNIQUE: Chest single view COMPARISON: 03/13/2017 FINDINGS: The lungs are well expanded. The heart is not enlarged. The vessels are not distended. There are no infiltrates. No effusion identified. The right hemidiaphragm is mildly elevated. IMPRESSION: Negative exam. Electronically signed by Hal Tovar 03/18/2018 3:49 PM 03/18/18 1549 Interpreting Physician: Hal Tovar MD Dictated Date/Time: 03/18/18 1549 cc: Rashid Cruz MD; Rama Mcrae MD) <Rashid Cruz - Last Filed: 03/18/18 16:59> - PLAN OF CARE/RESULTS Result Diagrams: 03/18/18 17:38 03/18/18 17:38 - CONSULTS/PCP/HOSPITALIST Notification #1 *Consult/PCP/Hospitalist*: Dr Quiroz, Dr Benavides Time Discussed: 18:48 Consult Disposition: Will see in ED, Admit (pending CT head no acute findings.) <Jas Mcintosh - Last Filed: 03/18/18 19:18> - PLAN OF CARE/RESULTS Progress/Plan/Lab Results: Vital Signs - 8 hr 03/18/18 14:54 03/18/18 15:39 03/18/18 16:03 Temperature 98.7 F Pulse Rate 123 H 164 H Respiratory Rate 16 12 Blood Pressure 106/77 165/123 231/195 O2 Sat by Pulse Oximetry 98 98 97 03/18/18 16:28 03/18/18 16:33 03/18/18 16:38 Temperature Pulse Rate 118 H 144 H 120 H Respiratory Rate 15 16 22 Blood Pressure 203/121 157/105 160/118 O2 Sat by Pulse Oximetry 97 97 98 03/18/18 16:42 03/18/18 16:48 03/18/18 16:53 Temperature Pulse Rate 111 H 115 H 126 H Respiratory Rate 28 H 19 21 Blood Pressure 166/102 156/117 191/163 O2 Sat by Pulse Oximetry 97 96 98 03/18/18 16:58 03/18/18 17:13 03/18/18 17:14 Temperature Pulse Rate 120 H 105 H 135 H Respiratory Rate 20 27 H 21 Blood Pressure 138/110 120/97 O2 Sat by Pulse Oximetry 98 98 98 03/18/18 17:18 03/18/18 17:23 03/18/18 17:28 Temperature Pulse Rate 125 H 80 103 H Respiratory Rate 17 15 22 Blood Pressure 156/92 115/79 144/107 O2 Sat by Pulse Oximetry 97 99 98 03/18/18 17:33 03/18/18 17:39 03/18/18 17:42 Temperature Pulse Rate 98 H 101 H 102 H Respiratory Rate 23 20 21 Blood Pressure 121/97 145/116 128/98 O2 Sat by Pulse Oximetry 98 99 98 03/18/18 17:47 03/18/18 17:53 03/18/18 17:59 Temperature Pulse Rate 98 H 97 H 105 H Respiratory Rate 22 17 20 Blood Pressure 126/118 151/112 151/121 O2 Sat by Pulse Oximetry 98 98 98 03/18/18 18:00 03/18/18 18:02 03/18/18 18:07 Temperature Pulse Rate 90 96 H 115 H Respiratory Rate 17 20 17 Blood Pressure 130/112 164/122 O2 Sat by Pulse Oximetry 98 98 98 03/18/18 18:13 03/18/18 18:18 03/18/18 18:23 Temperature Pulse Rate 111 H 120 H 117 H Respiratory Rate 17 16 17 Blood Pressure 167/114 181/132 172/117 O2 Sat by Pulse Oximetry 98 98 98 03/18/18 18:29 03/18/18 18:33 Temperature Pulse Rate 121 H 112 H Respiratory Rate 8 L Blood Pressure 133/107 154/121 O2 Sat by Pulse Oximetry 98 98 Laboratory Results - last 24 hr 03/18/18 03/18/18 03/18/18 15:20 15:20 17:38 WBC Cancelled 10.52 RBC Cancelled 6.13 H Hgb Cancelled 17.3 H Hct Cancelled 52.6 H MCV Cancelled 85.8 MCH Cancelled 28.2 MCHC Cancelled 32.9 L RDW Std Deviation Cancelled 13.8 Plt Count Cancelled 218 MPV Cancelled 13.1 H Immature Gran % (Auto) Cancelled 0.0 Neut % (Auto) Cancelled 75.7 H Lymph % (Auto) Cancelled 14.4 L Powell % (Auto) Cancelled 9.6 H Eos % (Auto) Cancelled 0.0 Baso % (Auto) Cancelled 0.3 Immature Gran # (Auto) Cancelled 0.00 Neut # (Auto) Cancelled 7.96 H Lymph # (Auto) Cancelled 1.52 Powell # (Auto) Cancelled 1.01 H Eos # (Auto) Cancelled 0.00 Baso # (Auto) Cancelled 0.03 Corrected WBC (Man) Cancelled Sodium Potassium Chloride Carbon Dioxide Anion Gap BUN Creatinine Estimated GFR/1.73 m2 BUN/Creatinine Ratio Glucose Calculated Osmolality Calcium Total Bilirubin AST ALT Alkaline Phosphatase Troponin T Ooj-V-Nwkqrbbovdw Pept Total Protein Albumin Globulin Albumin/Globulin Ratio Plasma Lactate Urine Source CATH Urine Color YELLOW Urine Turbidity HAZY Urine pH 6.5 Ur Specific [place] 1.017 Urine Protein >600 A Ur Glucose (Stick) 1000 A Ur Ketones (Stick) 10 A Urine Blood MODERATE A Urine Nitrite NEGATIVE Urine Bilirubin NEGATIVE Urobilinogen Dipstick NORMAL Urine Leukocytes NEGATIVE Urine WBC (Auto) <10 Urine RBC (Auto) <10 U Epithel Cells (Auto) <10 Urine Bacteria (Auto) 4+ 03/18/18 03/18/18 03/18/18 17:38 17:38 17:38 WBC RBC Hgb Hct MCV MCH MCHC RDW Std Deviation Plt Count MPV Immature Gran % (Auto) Neut % (Auto) Lymph % (Auto) Powell % (Auto) Eos % (Auto) Baso % (Auto) Immature Gran # (Auto) Neut # (Auto) Lymph # (Auto) Powell # (Auto) Eos # (Auto) Baso # (Auto) Corrected WBC (Man) Sodium 138 Potassium 3.9 Chloride 100 Carbon Dioxide 20 L Anion Gap 18 BUN 18 Creatinine 1.2 H Estimated GFR/1.73 m2 55 BUN/Creatinine Ratio 15 Glucose 287 H Calculated Osmolality 288 Calcium 9.6 Total Bilirubin 1.18 H AST 38 H ALT 41 H Alkaline Phosphatase 163 H Troponin T Gly-I-Ougnkbcrbaj Pept 2517 H Total Protein 7.5 Albumin 3.3 L Globulin 4.2 Albumin/Globulin Ratio 0.8 Plasma Lactate 2.2 Urine Source Urine Color Urine Turbidity Urine pH Ur Specific [place] Urine Protein Ur Glucose (Stick) Ur Ketones (Stick) Urine Blood Urine Nitrite Urine Bilirubin Urobilinogen Dipstick Urine Leukocytes Urine WBC (Auto) Urine RBC (Auto) U Epithel Cells (Auto) Urine Bacteria (Auto) 03/18/18 17:38 WBC RBC Hgb Hct MCV MCH MCHC RDW Std Deviation Plt Count MPV Immature Gran % (Auto) Neut % (Auto) Lymph % (Auto) Powell % (Auto) Eos % (Auto) Baso % (Auto) Immature Gran # (Auto) Neut # (Auto) Lymph # (Auto) Powell # (Auto) Eos # (Auto) Baso # (Auto) Corrected WBC (Man) Sodium Potassium Chloride Carbon Dioxide Anion Gap BUN Creatinine Estimated GFR/1.73 m2 BUN/Creatinine Ratio Glucose Calculated Osmolality Calcium Total Bilirubin AST ALT Alkaline Phosphatase Troponin T 0.021 Qks-G-Gspsqnahmvw Pept Total Protein Albumin Globulin Albumin/Globulin Ratio Plasma Lactate Urine Source Urine Color Urine Turbidity Urine pH Ur Specific [place] Urine Protein Ur Glucose (Stick) Ur Ketones (Stick) Urine Blood Urine Nitrite Urine Bilirubin Urobilinogen Dipstick Urine Leukocytes Urine WBC (Auto) Urine RBC (Auto) U Epithel Cells (Auto) Urine Bacteria (Auto) Orders Category Date Time Status CHEST-PORTABLE [RAD] Stat Exams 03/18/18 15:[address] HEAD W/O CONTRAST [CT] Stat Exams 03/18/18 18:15 Completed BLOOD CULTURE [BLDCUL] Stat Lab 03/18/18 15:24 Results BNP [PRO B-NATRIURETIC PEPTIDE] Stat Lab 03/18/18 17:38 Completed CBC WITH ELECTRONIC DIFF [HEME] Routine Lab 03/18/18 17:38 Completed COMPREHENSIVE METABOLIC PANEL [CHEM] Routine Lab 03/18/18 17:38 Completed LACTATE, PLASMA [CHEM] Routine Lab 03/18/18 17:38 Completed TROPONIN T Stat Lab 03/18/18 17:38 Completed URINALYSIS W/POSS RFLX CULT [URINALYSIS] Stat Lab 03/18/18 15:20 Completed URINE CULTURE [RM] Routine Lab 03/18/18 16:25 Received 0.9% Sodium Chloride Inj [Ns] 100 ml Med 03/18/18 17:00 Active Diltiazem [Cardizem] 125 mg IV As Directed Diltiazem [Cardizem] Med 03/18/18 16:53 Discontinued 10 mg IV NOW ONE Hydralazine [Apresoline] Med 03/18/18 16:16 Discontinued 10 mg IV NOW ONE Metoprolol [Lopressor] Med 03/18/18 16:08 Discontinued 5 mg IV NOW ONE EKG [EKG] Stat Ther 03/18/18 17:59 Ordered Hip fracture diagnosis entered in error and removed. (Jas Mcintosh) Departure <Rashid Cruz - Last Filed: 03/18/18 16:59> - Departure Date of Disposition Decision: 03/18/18 Time of Disposition Decision: 19:15 Certified Medical Emergency: Emergent - Critical Care Note This patient required my direct & personal management of CC.: No <Jas Mcintosh - Last Filed: 03/18/18 19:18> - Departure DIAGNOSIS: CVA (cerebral vascular accident), A-fib Disposition: ADMITTED INPATIENT 09 Condition: Fair Referrals and Follow-Ups: Rama Mcrae MD [Primary Care Provider] - Attestation - Physician/ CHRISTIANO Attestation Patient care was provided by Advanced Practice Provider:: No The physician spent face to face time with patient:: Yes Advanced Practice Provider documentation review:: Supervising physician onsite and consulted in the evaluation and care of this patient. The physician did have a face to face encounter with the patient. <Jas Mcintosh - Last Filed: 03/18/18 19:18> This chart was documented by the indicated scribe, (Yuliana Rodrigues Scribe) and accurately reflects the services I performed and decisions made by me, Rashid Cruz MD, as attested by the provider's signature.
[2018-03-18] MEDS: CARDIZEM 125 MG in NS 100 ML IV SCH ×2 (17:47→18:56)
[2018-03-18 18:00] LABS: ALB/GLOB RATIO 0.8; ALBUMIN 3.3 g/dL (3.5-5.0); CALCIUM 9.6 mg/dL (8.8-10.2); CREATININE 1.2 mg/dL (0.5-0.9); POTASSIUM 3.9 mmol/L (3.5-5.1); TOTAL BILIRUBIN 1.18 mg/dL (0.20-1.00); TOTAL PROTEIN 7.5 g/dL (6.3-8.3)
[2018-03-18 18:04] LABS: BASO# 0.03 X1000 (0.0-0.2); BASO% 0.3 % (0.0-0.8); HEMATOCRIT 52.6 % (37.0-47.0); HEMOGLOBIN 17.3 g/dL (12.0-16.0); LYMPH# 1.52 X1000 (1.2-3.4); LYMPH% 14.4 % (20.5-51.1); MCH 28.2 PG (27-31); MCHC 32.9 g/dL (33-37); MCV 85.8 FL (81-99); MONO# 1.01 X1000 (0.11-0.59); MONO% 9.6 % (1.7-9.3); MPV 13.1 FL (7.4-10.4); NEUT# 7.96 X1000 (1.4-6.5); NEUT% 75.7 % (42.2-75.2); PLT 218 X1000 (130-400); RBC 6.13 XMIL (4.2-5.4); RDW 13.8 % (11.5-14.5); WBC 10.52 X1000 (4.8-10.8)
--- NOTE | 2018-03-18 18:47 | ED EKG INTERP ---
This chart was entered by Gabo Michael Scribe, acting as scribe for Jas Mcintosh MD. EKG Interpretation - EKG Time of EKG reading by physician:: 18:24 EKG Read and Signed by:: Jas Mcintosh EKG Interpretation (*Must complete 3 of following elements*): Abnormal Rate: 118 Rhythm: A-Fib with RVR Comments: mrked ST abnormality, possible inferior subendocardial injury Attestation - Physician/ CHRISTIANO Attestation Patient care was provided by Advanced Practice Provider:: No The physician spent face to face time with patient:: Yes Advanced Practice Provider documentation review:: Supervising physician onsite and consulted in the evaluation and care of this patient. The physician did have a face to face encounter with the patient. This chart was documented by the indicated scribe, (Gabo Michael Scribe) and accurately reflects the services I performed and decisions made by me, Jas Mcintosh MD, as attested by the provider's signature.
--- NOTE | 2018-03-18 19:11 | Diag Imaging Result Doc PS360 ---
CT HEAD W/O CONTRAST - 03/18/2018 INDICATION: cva symptoms x 1 week COMPARISON: 02/17/2018 FINDINGS: There are grossly stable multifocal areas of old encephalomalacia. There is stable periventricular white matter chronic microvascular disease. No intracranial mass or hemorrhage. The skull is intact. The sinuses, mastoids, and middle ears are clear. IMPRESSION: No acute process. This exam was performed using automated exposure control, adjustment of mA or kV according to patient size, and/or use of iterative reconstruction technique Electronically signed by Greg Salas 03/18/2018 7:08 PM
[2018-03-18] MEDS ORDERED: LOPRESSOR PO ONE (19:42)
[2018-03-18] MEDS ORDERED: ELIQUIS PO ONE ×2 (19:43→20:55)
[2018-03-18] MEDS ORDERED: ASPIRIN PO ONE (19:43)
[2018-03-18] MEDS ORDERED: ZOFRAN IV PRN (20:55)
[2018-03-18] MEDS ORDERED: TYLENOL PO PRN (20:55)
[2018-03-18] MEDS ORDERED: CARDIZEM 125 MG in NS 100 ML IV SCH (21:30)
[2018-03-18] MEDS: MAXIPIME 1 GM in NS 50 ML IV SCH (21:43)
[2018-03-18] MEDS: HUMALOG SUBQ SCH (21:44)
[2018-03-18] MEDS: ASPIRIN PO SCH (21:44)
[2018-03-18] MEDS: LOPRESSOR PO SCH (21:44)
[2018-03-19] MEDS ORDERED: ATIVAN IV PRN ×2 (01:07→08:43)
[2018-03-19] MEDS: HUMALOG SUBQ SCH ×4 (06:01→21:54)
[2018-03-19] MEDS ORDERED: NS 1,000 ML IV SCH (06:30)
--- NOTE | 2018-03-19 07:54 | EKG Report ---
Test Performed on : 03/18/2018 6:24:52 PM Test Reason : a-fib Blood Pressure : / mmHG Vent. Rate : 118 BPM Atrial Rate : 105 BPM P-R Int : 000 ms QRS Dur : 076 ms QT Int : 292 ms P-R-T Axes : 000 039 237 degrees QTc Int : 409 ms Atrial fibrillation. with rapid ventricular response. Marked ST abnormality, possible inferior subendocardial injury Abnormal ECG When compared with ECG of 18-MAR-2018 15:51, (Unconfirmed) No significant change was found Unconfirmed Result
--- NOTE | 2018-03-19 08:03 | EKG Report ---
Test Performed on : 03/18/2018 3:51:06 PM Test Reason : afib Blood Pressure : / mmHG Vent. Rate : 142 BPM Atrial Rate : 136 BPM P-R Int : 000 ms QRS Dur : 076 ms QT Int : 260 ms P-R-T Axes : 000 046 250 degrees QTc Int : 399 ms Atrial fibrillation. with rapid ventricular response. with premature ventricular or aberrantly conduc kb complexes. Marked ST abnormality, possible inferolateral subendocardial injury Abnormal ECG When compared with ECG of 14-FEB-2018 22:03, (Unconfirmed) Vent. rate has increased BY [address] now depressed in Inferior leads Confirmed by Anahi STUART, Oscar Dorsey ([id number]) on 03/19/2018 3:25:40 PM
[2018-03-19 08:58] LABS: BASO# 0.02 X1000 (0.0-0.2); BASO% 0.2 % (0.0-0.8); EOS# 0.01 X1000 (0.0-0.7); EOS% 0.1 % (0.0-10.0); HEMATOCRIT 51.8 % (37.0-47.0); HEMOGLOBIN 16.5 g/dL (12.0-16.0); IMM GRAN# 0.02 X1000 (0.0-0.04); IMM GRAN% 0.2 % (0.0-0.5); LYMPH# 1.66 X1000 (1.2-3.4); LYMPH% 18.3 % (20.5-51.1); MCH 28.2 PG (27-31); MCHC 31.9 g/dL (33-37); MCV 88.4 FL (81-99); MONO# 0.89 X1000 (0.11-0.59); MONO% 9.8 % (1.7-9.3); MPV 13.1 FL (7.4-10.4); NEUT# 6.48 X1000 (1.4-6.5); NEUT% 71.4 % (42.2-75.2); PLT 190 X1000 (130-400); RBC 5.86 XMIL (4.2-5.4); RDW 14.2 % (11.5-14.5); WBC 9.08 X1000 (4.8-10.8)
[2018-03-19] MEDS: LOPRESSOR PO SCH ×2 (09:01→21:53)
[2018-03-19] MEDS: MAXIPIME 1 GM in NS 50 ML IV SCH ×2 (09:01→21:52)
[2018-03-19] MEDS: ASPIRIN PO SCH (09:01)
[2018-03-19 09:04] LABS: INR 0.95; PROTIME 13.5 Seconds (11.0-16.0)
[2018-03-19 09:20] LABS: ALB/GLOB RATIO 0.8; ALBUMIN 3.2 g/dL (3.5-5.0); CALCIUM 9.9 mg/dL (8.8-10.2); CREATININE 1.3 mg/dL (0.5-0.9); TOTAL BILIRUBIN 1.11 mg/dL (0.20-1.00)
--- NOTE | 2018-03-19 09:21 | HISTORY AND PHYSICAL ---
PRIMARY CARE PHYSICIAN: Rama Mcrae MD REASON FOR ADMISSION: Expressive aphasia for the last 1 week. HISTORY OF PRESENT ILLNESS: The patient is a 62-year-old lady with known history of a CVA complicated with left-sided hemiparesis. She was last admitted in this facility about 3 weeks ago for an acute cerebrovascular accident. At that time the patient was on Eliquis and aspirin was added. She was brought in today at the behest of her home health nurse who noticed that the patient had fallen out of her wheelchair. Her son is at the bedside, so he also furnished me with more information. The patient is not a very good historian, because she is having symptoms of expressive aphasia. She is able to get some of her words out, but when she is hurried she gets very frustrated and says the wrong words. The son tells me that for the last 1 week he has noticed intermittently that his mother would have a hard time expressing herself, even though her speech was clear. He denies to the best of his knowledge his mother having any increased weakness on the right or left side. The patient denies this and says that she has not had any weakness. She denies falling out of her wheelchair. She does admit though that she is having a hard time expressing herself. She denies any antecedent cardiorespiratory symptoms. She denies any loss of consciousness. Denies any GI or complaints. The son informs me, however, that the patient has not been compliant with her medications because when he goes to the house to check on her that her medication bottles are not where they should be. REVIEW OF SYSTEMS: Very limited due to the patient's inability to express herself adequately. ALLERGIES: The patient denies any allergies. HOME MEDICATIONS: Have not been reconciled. The bottles are at bedside and I have reviewed the old medication reconciliation list sheet, and have approved what I believe to be the essential medications once they are reconciled. 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 Cholecystectomy, left CEA, left heel debridement, Mediport placement. FAMILY HISTORY: Unchanged, i.e., first-degree relatives with heart disease and diabetes. SOCIAL HISTORY: The patient still lives alone. Does not smoke, drink or use illicit drugs. LAB WORK: White count is 10,000, hemoglobin 17, hematocrit 50, platelets 218,000 with 75% neutrophils. BUN is 18, creatinine 1.2, glucose 287, AST 38, ALT 41, alkaline phosphatase 163. Troponin 0.021, proBNP 2500. Lactate is 2.2. Urinalysis: Protein greater than 600, glucose 1000, ketones 10, moderate blood, 4+ bacteria. EKG shows atrial fibrillation with rapid ventricular response, ST depressions consistent with LVH criteria. Chest film is clear. Head CT shows no acute intracranial bleed with stable multifocal areas of encephalomalacia, and stable periventricular white matter chronic microvascular disease. PHYSICAL EXAMINATION: GENERAL: Middle-aged woman. She alert to person and time, not to place, although I think she knows she is in the hospital. VITAL SIGNS: Blood pressure 154/121, heart rate varying between 112 to 120s, respiratory rate is 12, temperature is 98.7. She 98% on room air. HEENT: Head is normocephalic, atraumatic. Eyes PERRL, EOMI. She is anicteric and not pale. ENT: Oropharyngeal exam is grossly normal. No central cyanosis. NEURO: Cranial nerves 2-12 are grossly intact. Speech is clear. On exam see above, but patient does have about 2+ strength in her left lower extremity and 1+ in her left upper extremity. 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 right hip flexion. NECK: Supple. She has an old CEA scar on the left side of her neck. No bruit or thyromegaly appreciated. CHEST: Clear when auscultated with good entry in both lung cam. CARDIOVASCULAR: First and second heart sounds are heard. No gallops, murmurs or rubs. Rhythm is irregular. ABDOMEN: Full, soft. Not tender. No masses or organomegaly. Bowel sounds are normal. RECTAL: Exam is deferred at this time. EXTREMITIES: The patient has diminished pulses distally in all extremities, worse in her left lower extremity compared to her upper extremities which are about +1 when palpated. She has a chronic healing ulcer of the left heel. She has grade 1 clubbing of her digits. No peripheral cyanosis. Extremities are warm to touch. No edema. SKIN: Grossly Intact, no turgor. The patient has a slight bruise on her left cheek. MUSCULOSKELETAL: Patient has a right AKA. The stump is slightly bruised, I presume from the fall. ASSESSMENT: 1. Possible left cerebrovascular accident, i.e. Broca area, possible lacunar infarct. Mechanism could be embolic. 2. Peripheral arterial disease. 3. Atrial fibrillation with rapid ventricular rate. 4. Type 2 diabetes, uncontrolled. 5. Chronic gouty disease. 6. Hypertensive heart disease. 7. Chronic diastolic heart failure. PLAN: The patient will have Eliquis, which I believe she was on, and aspirin will be started for now. Decision to start on Pletal I will defer to Neurology and primary care team. This patient's problems appear to be primarily due to a compliance issue. The patient has already been started on a Cardizem drip for rate control and will add on the patient's beta blockers from her old records. If this fails to control her rate, will consider adding on digoxin. Cautious blood pressure control with this patient will be instituted, provided the systolic blood pressure is not greater than 200 and the diastolic greater than 120 at which point we may slowly increase Cardizem drip to achieve both rate and blood pressure control and/or give metoprolol IV p.r.n. if heart rate is still greater than 90. Will resume the patient's other medications, i.e. long-acting insulin. Check A1c in the morning. I do believe this patient may benefit from an BRANDAN inhibitor due to the fact that she has proteinuria, blood pressure and renal function permitting. I do believe this patient needs to be closely followed when she is discharged this time to ensure she is compliant with her medications. Repeat imaging studies are MRI, check an echo to ensure the patient does not have a left atrial appendage embolus which would further lend credence to the possibility of an embolic mechanism. Speech and PT evaluations will be instituted. She will be admitted to the ICU for better blood pressure control and rate control. CRITICAL CARE TIME: Estimated to be 48 minutes. cc: MD Miguelangel Parker MD
[2018-03-19 09:24] LABS: HEMOGLOBIN A1C 6.8 % (4.8-6.0)
[2018-03-19 09:28] LABS: POTASSIUM 4.2 mmol/L (3.5-5.1)
--- NOTE | 2018-03-19 10:18 | PROGRESS NOTE ---
DATE: 03/19/2018 SUBJECTIVE: This morning Ms. Hamilton was seen in the ICU. She got admitted yesterday mainly because of expressive aphasia for the last week. The patient has history of multiple CVAs in the past with residual left-sided hemiparesis. This morning Ms. Hamilton refers to be doing a lot better. She is talking more. Per the nursing staff, she was slightly agitated and early this morning was pulling up on her IVs and on the EKG leads. However, at the time of the encounter, she was very calm and she was very polite. Occasionally, she shows signs of forgetfulness. OBJECTIVE: Vital Signs: Blood pressure is currently 169/111, pulse 77, respiration is 18, and temperature is 96.8 degrees. General: Ms. Hamilton is a 66-year-old female. She is in bed. She is not in any kind of cardiopulmonary distress. Mucosa is pink and moist. Anicteric and acyanotic. Neck: Supple. Respiratory: Air entry is bilaterally reduced. I did not hear any crackles or wheezing. Cardiovascular: Irregularly irregular, but rate controlled. No murmurs. No rubs. Abdomen: Soft. Distended but nontender. Bowel sounds are present. Extremities: On the left, there is no pedal edema. Distal pulses are present but hypoactive. There is right-sided AKA noted. Neurologic: Patient was awake, alert, and oriented to person but disoriented to place and time. Patient does have a left sided hemiparesis. LABORATORY DATA: WBC is 9.08, hemoglobin 16.5, platelet count of 190,000. Chemistry is also reviewed. Creatinine is 1.3. Rest of chemistry is unremarkable. CURRENT MEDICATIONS: 1. Cefepime 1 g q.12h. 2. Diltiazem drip. 3. Ativan 1 g IV q.1 p.r.n. 4. Metoprolol 25 mg b.i.d. 5. Normal saline at 70 mL/h. IMAGING STUDIES: On presentation, a chest x-ray was negative. A CT scan of the head showed no acute process. The patient is still pending MRI and MRA of the brain. ASSESSMENT: 1. Expressive aphasia on presentation, questionable for CVAs versus TIA. Patient is now talking, and seems to be understanding fairly okay. I think she does have an underlying dementia which could be vascular in etiology. The patient is pending MRI and MRA of the brain. We will follow up with the results. 2. History of CVA with left-sided hemiparesis noted. We will continue with aspirin and statin medications. 3. Atrial fibrillation with RVR on presentation. Currently, better rate controlled. 4. Mild left ventricular hypertrophy on the recent echocardiogram, likely due to hypertensive heart disease. We will continue to control blood pressure. 5. Severe uncontrolled hypertension on presentation. Blood pressure was 231/ 195. This is getting better controlled. 6. Heart failure with preserved ejection fraction. The patient is currently euvolemic. She is actually on the side of dehydration. 7. Clinical volume depletion. Patient is continued to have gentle IV fluids. 8. Acute kidney injury secondary to volume depletion improving. We will continue hydration. 9. Delirium likely due to hospital stay on background of poor neurological reserve. We will continue to observe. We would avoid any benzo's in Ms. Hamilton, and would rather use antipsychotics for agitation if needed. In general, I think Ms. Hamilton seems to be doing fairly okay, and got admitted because of expressive aphasia, which seems to have resolved. She is pending an MRA and MRI. Hopefully, once everything hemodynamically as well has stabilized, we can transfer her to the floor. cc: Jt Salas MD [facility]
[2018-03-19] MEDS: NS 1,000 ML IV SCH ×2 (11:47→21:54)
[2018-03-19] MEDS ORDERED: NS 250 ML ONE (12:22)
--- NOTE | 2018-03-19 13:31 | Diag Imaging Result Doc PS360 ---
MRI BRAIN W/WO CONTRAST - 03/19/2018 INDICATION: stroke COMPARISON: None FINDINGS: There are several small scattered foci of bright signal on the diffusion-weighted images throughout the cerebral hemispheres bilaterally. These are particularly concentrated in the watershed areas, mostly in the subcortical white matter. In addition, there is extensive scoliosis at the right occipital lobe in the periventricular white matter compatible with extensive chronic ischemic changes. No intracranial mass or hemorrhage. No abnormal contrast enhancement. There is apparent stenosis of the distal most right vertebral artery of uncertain significance. IMPRESSION: 1. Tiny recent infarctions in the cerebral hemispheres bilaterally in the watershed areas. The reason is unclear. 2. Probable stenosis of the distal most right vertebral artery. 3. Stable extensive chronic ischemic changes. Electronically signed by Greg Salas 03/19/2018 1:29 PM
--- NOTE | 2018-03-19 13:34 | Diag Imaging Result Doc PS360 ---
MRA BRAIN W/O CONTRAST - 03/19/2018 INDICATION: stroke TECHNIQUE: Noncontrast oace-pi-xkssud technique was used COMPARISON: None FINDINGS: There is significant vascular disease causing irregularity of the carotid siphons bilaterally. There is about 30-40% stenosis on each side. Similarly, there is some vascular irregularity suggesting atherosclerotic disease of the middle cerebral arteries bilaterally but no significant stenosis here. The anterior cerebral arteries appear to be patent. There is moderate stenosis of the distal most right vertebral artery, with about 50% narrowing. The left vertebral artery is small in size as well. The basilar artery appears to be normal. The cerebellar arteries appear normal. IMPRESSION: Widespread atherosclerotic disease mainly of the carotid siphons, middle cerebral arteries, and right vertebral artery. Electronically signed by Greg Salas 03/19/2018 1:32 PM
--- NOTE | 2018-03-19 13:39 | Diag Imaging Result Doc PS360 ---
MRA NECK W/CONT - 03/19/2018 INDICATION: expressive aphasia TECHNIQUE: MR angiogram of the neck with intravenous contrast COMPARISON: None FINDINGS: Normal aortic arch. The origins of the great vessels are grossly normal. There is essentially no contrast flow into the right vertebral artery. The left vertebral artery fills normally. The carotid artery systems are patent bilaterally. No significant stenosis or aneurysm. IMPRESSION: Nonvisualization of the right vertebral artery. This indicates severely slow flow to near occlusion. Electronically signed by Greg Salas 03/19/2018 1:36 PM
--- NOTE | 2018-03-19 14:10 | Diag Imaging Result Doc PS360 ---
EXAM: CHEST-PORTABLE 03/19/2018 HISTORY: Verify PICC placement TECHNIQUE: AP portable at 1402 COMMENT: The inspiration is suboptimal. There is a calcified granuloma in the right lower lobe. There is a PICC line on the right with its tip just above the right atrium. IMPRESSION: No evidence of acute disease. Electronically signed by Fan Maradiaga 03/19/2018 2:07 PM
[2018-03-19] MEDS: CATAPRES PO SCH ×2 (14:53→17:31)
[2018-03-19] MEDS ORDERED: LIPITOR PO SCH (21:00)
[2018-03-19] MEDS: NORVASC PO SCH (21:53)
[2018-03-19] MEDS: ELIQUIS PO SCH (21:53)
[2018-03-19] MEDS: CRESTOR PO SCH (21:53)
[2018-03-20] MEDS ORDERED: NS 1,000 ML IV SCH (02:45)
[2018-03-20 04:51] LABS: BASO# 0.03 X1000 (0.0-0.2); BASO% 0.4 % (0.0-0.8); EOS# 0.06 X1000 (0.0-0.7); EOS% 0.8 % (0.0-10.0); HEMATOCRIT 44.5 % (37.0-47.0); HEMOGLOBIN 14.4 g/dL (12.0-16.0); LYMPH# 1.41 X1000 (1.2-3.4); LYMPH% 19.7 % (20.5-51.1); MCH 28.7 PG (27-31); MCHC 32.4 g/dL (33-37); MCV 88.6 FL (81-99); MONO# 0.82 X1000 (0.11-0.59); MONO% 11.5 % (1.7-9.3); MPV 13.2 FL (7.4-10.4); NEUT# 4.84 X1000 (1.4-6.5); NEUT% 67.6 % (42.2-75.2); PLT 155 X1000 (130-400); RBC 5.02 XMIL (4.2-5.4); WBC 7.16 X1000 (4.8-10.8)
[2018-03-20 05:24] LABS: AGAP 14; ALB/GLOB RATIO 0.8; ALBUMIN 2.6 g/dL (3.5-5.0); ALKALINE PHOSPHATASE 121 U/L (32-104); BUN 21 mg/dL (8-22); CALCIUM 8.7 mg/dL (8.8-10.2); CHLORIDE 102 mmol/L (98-107); COSMO 277; CREATININE 1.1 mg/dL (0.5-0.9); ESTIMATED GFR > 60; GLUCOSE 107 mg/dL (70-104); GOT 28 U/L (10-30); GPT 26 U/L (10-36); POTASSIUM 3.6 mmol/L (3.5-5.1); SODIUM 137 mmol/L (136-145); TCO2 21 mmol/L (25-35); TOTAL PROTEIN 5.7 g/dL (6.3-8.3)
[2018-03-20] MEDS: HUMALOG SUBQ SCH ×4 (06:24→21:00)
--- NOTE | 2018-03-20 07:54 | ECHO REPORT ---
ORDER DATE: 03/18/2018 ECHOCARDIOGRAPHIC MEASUREMENTS: 1. Left ventricular end-diastolic diameter 3.9. 2. End-systolic diameter 2.6. 3. Septal thickness 1.4. 4. Aortic root 2.8. 5. Left atrium 3.9. SUMMARY: 1. Fair quality study. 2. Aortic valve is trileaflet and appears sclerotic with adequate opening on 2-dimensional images. Peak gradient across the aortic valve is less than 10 mmHg. Moderate mitral annular calcification is demonstrated with mild mitral regurgitation. Tricuspid valve is without evidence of structural abnormality with mild tricuspid regurgitation. The estimated systolic PA pressure by Doppler is 40 mmHg suggesting mild pulmonary hypertension. Pulmonic valve is without evidence of structural abnormality. Aortic root is normal in size. 3. Normal left ventricular chamber size with mild to moderate concentric left hypertrophy suggested. Estimated left ventricular ejection fraction appears to be at least 55%. No regional wall motion abnormality is evident. Left atrium is mildly enlarged. The right atrium and right ventricle are normal in size with grossly preserved right ventricular systolic function. 4. No pericardial effusion. 5. Appearance of inferior vena cava suggests normal central venous pressure. cc: MD Miguelangel Ybarra MD
[2018-03-20] MEDS: MAXIPIME 1 GM in NS 50 ML IV SCH (08:08)
[2018-03-20] MEDS: ELIQUIS PO SCH ×2 (08:08→20:42)
[2018-03-20] MEDS: ASPIRIN PO SCH (08:08)
[2018-03-20] MEDS: NORVASC PO SCH ×2 (08:08→20:42)
[2018-03-20] MEDS ORDERED: ASPIRIN PO SCH (09:00)
[2018-03-20] MEDS: ROCEPHIN 1 GM in NS 50 ML IV SCH (09:53)
[2018-03-20] MEDS: LOPRESSOR PO SCH ×2 (09:53→20:42)
[2018-03-20] MEDS: CATAPRES PO SCH ×3 (09:53→20:55)
[2018-03-20] MEDS: PRINIVIL PO SCH (09:56)
--- NOTE | 2018-03-20 10:26 | PROGRESS NOTE ---
DATE: 03/20/2018 SUBJECTIVE: This morning, Ms. Hamilton refers to be feeling a lot better, more alert, more conversational. Per the nursing staff, the night was uneventful. OBJECTIVE: Vital Signs: Blood pressure is 175/107, pulse of 81. Respiration is 15, temperature is 96.7 degrees. Patient is saturating 98% on room air. On general examination , Ms. Hamilton is a 62-year-old female. She is in bed. She was not in any cardiopulmonary distress. Mucosa is pink and moist. Anicteric. Acyanotic. Neck was supple. No JVD. There is a left side scar consistent with previous neck surgery. Respiratory System: Good air entry bilaterally. No crepitations. No rhonchi. Cardiovascular: Irregularly irregular but no murmur, no rubs, no gallops. GI: Abdomen was soft, nontender. Bowel sounds were present. No hepatosplenomegaly. was unremarkable. No Guerra catheter. Extremities: The left lower extremity has no pedal edema. Distal pulse is almost imperceptible, and there is a dark discoloration of the toes consistent with dry gangrene. It is worse on the 2nd and 3rd toes. The right side has an AKA. 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 She does have about 3/5 power in the left upper extremity with some hyperreflexia and contraction consistent with chronic neurological deficit. LABORATORY DATA: This morning, WBC is 7.16, hemoglobin is 14.4, platelet count of 155,000. Chemistry is also reviewed. Sodium is 137, potassium is 3.6, chloride is 102, bicarb is 21, creatinine is down to 1.1. AST and ALT normalized So far, the patient's catheterized urine culture has shown Klebsiella pneumoniae which is sensitive to a lot of antibiotics. IMAGING STUDIES: MRI of the brain yesterday shows tiny recent infarctions in the cerebral hemisphere bilateral in the watershed areas. The reason is unclear. Probably stenosis of the distal most right vertebral artery. Extensive chronic ischemic changes. MRA of the neck shows nonvisualization of the right vertebral artery and indicates severe slow flow to near occlusion. MRA of the brain shows widespread atherosclerotic disease mainly of the carotid siphons, middle cerebral arteries and right vertebral artery. ASSESSMENT: 1. Expressive aphasia on presentation, improved. This is suggestive of transient ischemic attack. MRI of the brain has shown multiple areas of recent infarctions. 2. Severe atherosclerosis, both intracranial and extracranial. We will continue with adequate statin therapy. Aspirin has been increased to 325 and patient is on Eliquis. 3. History of cerebrovascular accident with left-sided hemiparesis noted. 4. Atrial fibrillation with RVR on presentation. Patient was on Cardizem drip. This has been discontinued. Currently, metoprolol. 5. Mild left ventricular hypertrophy on echo secondary to hypertensive heart disease. We will continue addressing the underlying disease ( blood pressure ). 6. Severe uncontrolled hypertension. Blood pressure continues to be elevated. The patient is currently on amlodipine and clonidine. We will add lisinopril to her current medications for adequate blood pressure control. 7. Heart failure with preserved ejection fraction. Patient os euvolemic. 8. Clinical volume depletion on presentation, improved with IV fluids. We will discontinue this today since patient is adequately hydrating orally. 9. Acute kidney injury secondary to volume depletion improved. 10. Delirium. I think this could be multifactorial including urinary tract infection and also the recent strokes. She seems to be a lot more better today. 11. Klebsiella pneumoniae urinary tract infection. This is sensitive to a lot of medications. I have discontinue the cefepime and transition this to ceftriaxone for 1 time daily dosing, and we can transition this to oral Ancef or cephalexin when patient is ready for discharge. In general, I think Ms. Hamilton is clinically stable. We are going to continue with physical therapy. We will transfer her from the ICU to the medical floor. Continue titrating and controlling her blood pressure and, hopefully, transfer her back to the intermediate for her to continue rehabilitation as needed. cc: Jt Salas MD [facility]
[2018-03-20] MEDS: CRESTOR PO SCH (20:42)
[2018-03-21 06:42] LABS: AGAP 18; BUN 16 mg/dL (8-22); CALCIUM 8.9 mg/dL (8.8-10.2); CHLORIDE 101 mmol/L (98-107); COSMO 273; ESTIMATED GFR > 60; GLUCOSE 101 mg/dL (70-104); POTASSIUM 3.1 mmol/L (3.5-5.1); SODIUM 136 mmol/L (136-145); TCO2 17 mmol/L (25-35)
[2018-03-21] MEDS: HUMALOG SUBQ SCH ×3 (07:00→16:44)
[2018-03-21] MEDS: ELIQUIS PO SCH ×2 (08:55→23:17)
[2018-03-21] MEDS: ASPIRIN PO SCH (08:55)
[2018-03-21] MEDS: PRINIVIL PO SCH (08:55)
[2018-03-21] MEDS: CATAPRES PO SCH ×3 (08:56→23:17)
[2018-03-21] MEDS: LOPRESSOR PO SCH ×2 (08:56→23:17)
[2018-03-21] MEDS: NORVASC PO SCH ×2 (08:56→23:16)
[2018-03-21] MEDS: ROCEPHIN 1 GM in NS 50 ML IV SCH (09:56)
[2018-03-21] MEDS ORDERED: HALDOL IV PRN (12:23)
[2018-03-21] MEDS ORDERED: CALMOSEPTINE OINTMENT TOP PRN (14:25)
--- NOTE | 2018-03-21 16:10 | PROGRESS NOTE ---
DATE: 03/21/2018 SUBJECTIVE: This morning, Ms. Hamilton refers to be doing fairly okay. She was slightly drowsy. I understand she was given a dose of Ativan yesterday because she could not sleep and was agitated. OBJECTIVE: Vital signs: Blood pressure is 138/70, pulse is 71, respirations 16, temperature is 97.4 degrees. General: Ms. Pruett is a 62-year-old female. She was in bed and did not seem to be in any cardiopulmonary distress. HEENT: Mucosa was pink and moist. Anicteric. Acyanotic. Neck: Supple. No JVD. Respiratory System: Good air entry bilateral. No crepitations. No rhonchi. Cardiovascular: Irregularly irregular, but no murmurs, no rubs, no gallops. Gastrointestinal: Abdomen soft, nontender. Bowel sounds are present. Genitourinary: Unremarkable. Extremities: Left lower extremity has no pedal edema. Distal pulses are imperceptible. There is some dark discoloration of the toes, consistent with dry gangrene. The 2nd and 3rd toes on the left look worse. The right has a BKA. Central nervous system: Patient is drowsy, but easily arousable and follows commands. There is a 3/5 power on the left upper extremity with some hyperreflexia and contraction consistent with chronic neurological deficit. DIAGNOSTIC STUDIES: Sodium is 136, potassium is 3.1, chloride is 101, bicarbonate is 17, creatinine is down to 1.0. CURRENT MEDICATIONS: Have all been reviewed. She is still on ceftriaxone. Today is day 3 on antibiotics. ASSESSMENT: 1. Expressive aphasia on presentation, secondary to cerebrovascular accident (CVA), improved. 2. Severe atherosclerosis, both intracranial and extracranial, noted on imaging. Patient is currently on aspirin 325 mg daily and Eliquis. 3. Recurrent cerebrovascular accidents (CVAs) with left-sided hemiparesis. 4. Atrial fibrillation with rapid ventricular response (RVR) on presentation, currently rate controlled on metoprolol. 5. Mild left ventricular hypertrophy on echocardiogram secondary to hypertensive heart disease. We will continue titrating to get better blood pressure control. 6. Severe uncontrolled hypertension on presentation, improved. 7. History of congestive heart failure with preserved ejection fraction. Currently euvolemic. 8. Clinical volume depletion on presentation, improved. 9. Acute kidney injury secondary to volume depletion. Creatinine is down to 1.0. 10. Klebsiella pneumoniae urinary tract infection (UTI). We will continue with ceftriaxone. 11. Delirium, improved. DISPOSITION: Still pending rehabilitation arrangement to get Ms. Pruett to [facility]. I have discontinued the Ativan. We will use Haldol p.r.n. for any delirium or agitation. cc: Jt Salas MD
[2018-03-21] MEDS: CRESTOR PO SCH (23:17)
[2018-03-22] MEDS: HUMALOG SUBQ SCH ×5 (05:39→23:05)
[2018-03-22] MEDS: ASPIRIN PO SCH (08:24)
[2018-03-22] MEDS: NORVASC PO SCH ×2 (08:24→23:04)
[2018-03-22] MEDS: PRINIVIL PO SCH (08:24)
[2018-03-22] MEDS: LOPRESSOR PO SCH ×2 (08:24→23:03)
[2018-03-22] MEDS: CATAPRES PO SCH ×3 (08:24→23:04)
[2018-03-22] MEDS: ELIQUIS PO SCH ×2 (08:24→23:03)
[2018-03-22 09:07] LABS: HEMATOCRIT 47.3 % (37.0-47.0); HEMOGLOBIN 15.5 g/dL (12.0-16.0); MCH 28.5 PG (27-31); MCHC 32.8 g/dL (33-37); MCV 87.1 FL (81-99); MPV 13.1 FL (7.4-10.4); RBC 5.43 XMIL (4.2-5.4); RDW 13.5 % (11.5-14.5); WBC 5.32 X1000 (4.8-10.8)
[2018-03-22] MEDS: ROCEPHIN 1 GM in NS 50 ML IV SCH (10:01)
[2018-03-22 10:21] LABS: AGAP 21; BUN 13 mg/dL (8-22); CALCIUM 9.1 mg/dL (8.8-10.2); CHLORIDE 98 mmol/L (98-107); COSMO 278; CREATININE 0.8 mg/dL (0.5-0.9); ESTIMATED GFR > 60; GLUCOSE 101 mg/dL (70-104); POTASSIUM 2.9 mmol/L (3.5-5.1); SODIUM 139 mmol/L (136-145); TCO2 20 mmol/L (25-35)
[2018-03-22] MEDS ORDERED: KLOR-CON PO ONE (10:30)
[2018-03-22] MEDS ORDERED: MAGNESIUM SULFATE 2 GM/S.W.I. 2 GM/50 ML IVPB IV ONE (10:31)
[2018-03-22] MEDS: POTASSIUM CHLORIDE 20 MEQ/SWI 20 MEQ/100 ML IVPB IV SCH ×2 (11:41→15:51)
[2018-03-22] MEDS ORDERED: NS 500 ML ONE (11:41)
--- NOTE | 2018-03-22 14:32 | PROGRESS NOTE ---
DATE: 03/22/2018 SUBJECTIVE: Today Ms. Hamilton refers to be doing a lot better. There was a very good friend of hers at the bedside at the time of the encounter. OBJECTIVE: Vital signs: Blood pressure is 122/73, pulse is 69, respiration is 20, temperature is 97.6 degrees. General exam: Ms. Hmailton is a 62-year-old female. She was in bed in no distress. HEENT: Mucosa is pink and moist. Anicteric. Acyanotic. Neck: Supple. Respiratory System: There is good air entry bilaterally. No crepitations. No rhonchi. Cardiovascular: Irregularly irregular, but rate controlled. No murmurs, no rubs. Gastrointestinal: Abdomen was soft, nontender. Bowel sounds present. : Unremarkable. 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 The left extremity has no pedal edema. Distal pulses are very low and some dark discoloration of the toes consistent with dry gangrene. The second and third toes on the left leg look worse. 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 She does have a left upper extremity paresis with hyperreflexia and some contraction consistent with chronic neurological deficit. LABORATORY DATA: WBC is 5.32, hemoglobin is 15.5, platelet count 171. Chemistry is also reviewed. Potassium is 2.9. Rest of chemistry is normal. Patient's creatinine has normalized to 0.8. ASSESSMENT: 1. Expressive aphasia on presentation, resolved, likely due to transient ischemic attack. 2. Recurrent cerebrovascular accidents. 3. Severe intra and extracranial atherosclerosis. The patient is on statin, Eliquis and aspirin. 4. Recent cerebrovascular accident with left-sided hemiparesis. 5. Atrial fibrillation with rapid ventricular response on presentation. Currently rate controlled on metoprolol. 6. Mild left ventricular hypertrophy on echocardiogram secondary to hypertensive heart disease. Blood pressure is better controlled. 7. Uncontrolled hypertension on presentation, improved. 8. History of congestive heart failure with preserved ejection fraction, currently euvolemic. 9. Acute kidney injury on presentation, secondary to volume depletion, resolved with adequate hydration. 10. Klebsiella pneumoniae urinary tract infection. Patient is on ceftriaxone; today is day 2 on that. 11. A total of 4 days of antibiotic. Patient was on cefepime for 2 days prior. 12. Delirium, improved. 13. Disposition: Still pending insurance approval for [facility] rehabilitation placement. cc: Jt Salas MD
[2018-03-22] MEDS: CRESTOR PO SCH (23:03)
[2018-03-23] MEDS: HUMALOG SUBQ SCH ×4 (06:48→22:55)
[2018-03-23 07:22] LABS: AGAP 18; BUN 13 mg/dL (8-22); CALCIUM 9.1 mg/dL (8.8-10.2); CHLORIDE 99 mmol/L (98-107); COSMO 275; CREATININE 0.8 mg/dL (0.5-0.9); ESTIMATED GFR > 60; GLUCOSE 111 mg/dL (70-104); POTASSIUM 3.7 mmol/L (3.5-5.1); SODIUM 137 mmol/L (136-145); TCO2 20 mmol/L (25-35)
[2018-03-23] MEDS: LOPRESSOR PO SCH ×2 (10:31→22:53)
[2018-03-23] MEDS: PRINIVIL PO SCH (10:31)
[2018-03-23] MEDS: NORVASC PO SCH ×2 (10:31→22:54)
[2018-03-23] MEDS: CATAPRES PO SCH ×3 (10:31→18:22)
[2018-03-23] MEDS: ELIQUIS PO SCH ×2 (10:31→22:54)
[2018-03-23] MEDS: ROCEPHIN 1 GM in NS 50 ML IV SCH (10:32)
[2018-03-23] MEDS: ASPIRIN PO SCH (10:32)
--- NOTE | 2018-03-23 20:41 | PROGRESS NOTE ---
DATE: 03/23/2018 SUBJECTIVE: This morning Ms. Hamilton refers to be doing fairly okay, no major changes overnight, no new complaints. OBJECTIVE: Vitals: Blood pressure is 156/92, pulse is 73, respiration is 16, temperature is 97.6 degrees, patient was saturating 97% on room air. General: Ms. Hamilton is a 62-year-old female she was in bed no distress. Mucosa is pink and moist. Anicteric. Acyanotic. Neck: Supple. Respiratory: There is good air entry bilateral. No crepitations, no rhonchi. No accessory muscle use. Cardiovascular: Irregularly irregular but rate control. No murmurs, no rubs, no gallops. Abdomen: Soft, nontender. Bowel sounds present. : Was unremarkable. 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 Left lower extremity has no pedal edema. Distal pulses are almost imperceptible and there is some discoloration of the toes. PHARMACOLOGIST: Patient is awake, alert, communicating. Does have a left upper extremity hyperreflexia with some contraction consistent with chronic neurological deficit. LABORATORY DATA: Sodium is 137, potassium is 3.7, chloride 99, bicarb is 20, glucose is 116. CURRENT MEDICATIONS: Have all been reviewed. Still on ceftriaxone 1 g q.24, today is dates 3 on ceftriaxone. ASSESSMENT: 1. Expressive aphasia on presentation secondary to transient ischemic attack improved. 2. 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 3. History of atrial fibrillation with rapid ventricular response on presentation currently rate controlled. 4. Mild left ventricular hypertrophy on echocardiogram secondary to hypertensive heart disease, will continue with blood pressure management. 5. Hypertension, better controlled. 6. Acute kidney injury secondary to volume depletion resolved. 7. Klebsiella pneumoniae urinary tract infection, patient is on day 5 on antibiotics in general, day 3 on ceftriaxone clinically stable. I think patient has completed the course of antibiotics, I will discontinue this. 8. Delirium improved. 9. History of congestive heart failure with preserved ejection fraction. Patient is currently euvolemic. PLAN: So in general I think Ms. Hamilton is doing a lot better, I think she is back to her baseline. I think she has gotten enough antibiotics for the UTI. We will discontinue it now and continue with adequate control of her blood pressure. We are still pending approval for rehab on Ms. Hamilton . cc: Jt Salas MD
[2018-03-23] MEDS: CRESTOR PO SCH (22:54)
[2018-03-24] MEDS: HUMALOG SUBQ SCH ×4 (06:28→20:37)
[2018-03-24] MEDS: PRINIVIL PO SCH (08:12)
[2018-03-24] MEDS: CATAPRES PO SCH ×3 (08:13→17:44)
[2018-03-24] MEDS: ASPIRIN PO SCH (08:13)
[2018-03-24] MEDS: NORVASC PO SCH ×2 (08:13→20:32)
[2018-03-24] MEDS: LOPRESSOR PO SCH ×2 (08:13→20:32)
[2018-03-24] MEDS: ELIQUIS PO SCH ×2 (08:13→20:32)
--- NOTE | 2018-03-24 13:58 | PROGRESS NOTE ---
DATE: 03/24/2018 SUBJECTIVE: This morning Ms. Hamilton refers to be doing fairly okay. Denies any complaints. OBJECTIVE: Vital signs: Blood pressure is 119/70, pulse is 56, respirations 12, temperature is 97.6 degrees. The patient is saturating 100% on room air. General: Ms. Hamilton is a 62-year- old female. She is in bed. She is not in any cardiopulmonary distress. HEENT: Mucosa is pink and moist. Anicteric. Acyanotic. Neck: Supple. Respiratory: Good air entry bilaterally. No crepitations. No rhonchi. Cardiovascular: Irregularly irregular but rate controlled. No murmurs. No rubs. No gallops. Abdomen: Soft, nontender. Bowel sounds present. : Unremarkable. Extremities: Positive for right AKA. Left lower extremity has no pedal edema. Distal pulses are almost imperceptible and some discoloration of the toe. DIRECTOR BUSINESS DEVELOPMENT: Patient is awake and follows commands. There is a left upper extremity hyperreflexia and contraction consistent with chronic neurological deficit. LABORATORY DATA: None. Glucose is 146. ASSESSMENT: 1. Expressive aphasia on presentation secondary to transient ischemic attack, resolved. 2. Recurrent cerebrovascular accidents with left-sided hemiparesis, noted. 3. History of atrial fibrillation with rapid ventricular response on presentation. Currently rate controlled. 4. Mild left ventricular hypertrophy on echocardiogram secondary to hypertensive heart disease. We will continue with blood pressure management. 5. Hypertension, controlled. 6. Acute kidney injury secondary to volume depletion, resolved. 7. Klebsiella pneumoniae urinary tract infection. Patient has completed 5 days of IV antibiotic. 8. History of congestive heart failure with preserved ejection fraction. Currently euvolemic. 9. Delirium during hospital course, resolved. 10. Generalized weakness and deconditioning. I understand Ms. Hamilton normally lives alone and is able to move from bed to wheelchair with no assistance. As it is now, she is not able to do that, so we are pending her approval to rehab to help her with physical restorationist to be able to get back to her baseline. cc: Jt Salas MD
[2018-03-24] MEDS: CRESTOR PO SCH (20:32)
[2018-03-24] MEDS ORDERED: ALBUTEROL NEB INH ONE (23:48)
[2018-03-25] MEDS: HUMALOG SUBQ SCH ×4 (06:21→21:51)
--- NOTE | 2018-03-25 07:10 | EKG Report ---
Test Performed on : 03/24/2018 10:22:01 PM Test Reason : abnormal heart rate Blood Pressure : / mmHG Vent. Rate : 042 BPM Atrial Rate : 048 BPM P-R Int : 000 ms QRS Dur : 084 ms QT Int : 532 ms P-R-T Axes : 000 009 181 degrees QTc Int : 444 ms Atrial fibrillation. with slow ventricular response. ST & T wave abnormality, consider inferolateral ischemia Abnormal ECG When compared with ECG of 18-MAR-2018 18:24, (Unconfirmed) Vent. rate has decreased BY [address] no longer depressed in Anterior leads T wave inversion less evident in Inferior leads T wave inversion less evident in Anterior leads Confirmed by Anahi STUART, Oscar Dorsey ([id number]) on 03/25/2018 8:54:00 AM
--- NOTE | 2018-03-25 08:05 | EKG Report ---
Test Performed on : 03/25/2018 07:58:44 AM Test Reason : Bradycardia Blood Pressure : / mmHG Vent. Rate : 073 BPM Atrial Rate : 468 BPM P-R Int : 000 ms QRS Dur : 076 ms QT Int : 414 ms P-R-T Axes : 000 024 210 degrees QTc Int : [address] & T wave abnormality, consider inferolateral ischemia Abnormal ECG When compared with ECG of 24-MAR-2018 22:22, (Unconfirmed) Vent. rate has increased BY 31 BPM Confirmed by Anahi STUART, Oscar Dorsey ([id number]) on 03/25/2018 8:54:23 AM
[2018-03-25] MEDS: PRINIVIL PO SCH (08:24)
[2018-03-25] MEDS: ELIQUIS PO SCH ×2 (08:24→21:52)
[2018-03-25] MEDS: NORVASC PO SCH ×2 (08:24→21:52)
[2018-03-25] MEDS: ASPIRIN PO SCH (08:24)
--- NOTE | 2018-03-25 11:35 | PROGRESS NOTE ---
DATE: 03/25/2018 SUBJECTIVE: This morning Ms. Hamilton refers to be doing fairly okay. She denies any complaints. I understand last night her pulse was very low and went down somewhere into the 30s, but she was completely asymptomatic with very normal blood pressure. Her clonidine and Lopressor this morning were on hold. OBJECTIVE: Vital signs: Blood pressure is 150/77, pulse is 61, respirations 18, temperature 97.7 degrees. The patient is breathing ambient air. General: Ms. Hamilton is a 62-year-old female. She is in bed, no distress. HEENT: Mucosa is pink and moist. Anicteric. Acyanotic. Neck: Supple. Chest: Clear to auscultation. No crepitations. No rhonchi. Cardiovascular: Irregularly irregular but rate controlled. No murmurs, no rubs, no gallops. Gastrointestinal: Abdomen is soft, nontender. Bowel sounds present. Extremities: No pedal edema. There is a right AKA noted. Left lower extremity has discoloration of the toes, and the pulses are remarkably low. Central nervous system: Patient is awake and follows commands. She does have a left upper extremity paresis associated with hyporeflexia and contraction. DIAGNOSTIC STUDIES: Glucose is 127. ASSESSMENT: 1. Expressive aphasia on presentation, secondary to transient ischemic attack (TIA), resolved. 2. History of recurrent cerebrovascular accidents (CVAs) with subsequent left-side hemiparesis. 3. History of atrial fibrillation with rapid ventricular response (RVR) on presentation. This is currently controlled. The patient was actually more bradycardic over the course of last night, and her beta luna, including the clonidine were withheld. I have discontinue the clonidine, and I have restarted her metoprolol at only 12.5 b.i.d. since her pulse is back to the 70s. 4. Mild left ventricular hypertrophy on echocardiogram secondary to hypertensive heart disease. We will continue adequate blood pressure control. 5. Hypertension, controlled. 6. Acute kidney injury on presentation, resolved. 7. Klebsiella pneumoniae urinary tract infection (UTI). Patient has completed 5 days of IV antibiotics. 8. History of congestive heart failure with preserved ejection fraction, currently euvolemic. 9. Delirium during the hospital course, resolved. 10. Generalized weakness and deconditioning. We are still pending insurance approval for [facility] placement. In general Ms. Hamilton is a 62-year-old female who has had multiple strokes in the past. The patient was discharged from this hospital on 02/17/2018 because of CVA, came back because she was aphasic. During the hospital course, she seems to have been doing fairly okay. Repeat neurological imaging studies continue to show strokes. She has been fairly stable. Her heart rate is now better controlled. We started her on her medications. She has completed 5 days of UTI treatment, and we are waiting for rehabilitation placement. cc: Jt Salas MD
[2018-03-25] MEDS: LOPRESSOR PO SCH (21:52)
[2018-03-25] MEDS: CRESTOR PO SCH (21:52)
[2018-03-26] MEDS: HUMALOG SUBQ SCH ×2 (06:44→11:31)
[2018-03-26] MEDS: PRINIVIL PO SCH (08:24)
[2018-03-26] MEDS: ELIQUIS PO SCH (08:24)
[2018-03-26] MEDS: ASPIRIN PO SCH (08:24)
[2018-03-26] MEDS: NORVASC PO SCH (08:24)
[2018-03-26] MEDS: LOPRESSOR PO SCH (08:24)
[2018-03-26 11:33] VITALS: BP 142/88
--- NOTE | 2018-03-26 13:23 | PROGRESS NOTE ---
DATE: 03/26/2018 SUBJECTIVE: She is a patient of Dr. Rama Mcrae. Expressed that she had aphasia for about a week. Came in on 03/18/2018. A 62-year-old with history of CVA complicated by left-sided hemiparesis. Admitted to our facility about 3 weeks ago for an acute cerebrovascular accident. At that time, patient was on Eliquis and aspirin. Brought in at the behest of her home health nurse, who noticed that the patient had fallen out of her wheelchair. Her son was at the bedside, and he gave most of the information. She is able to get some words output was hurried and was frustrated and trouble with her speech. He tells me the last week he noticed mother had a hard time expressing herself; even though speech was clear, she had a hard time finding the words. Denied to the best of his knowledge any increased weakness on the right or left side. She denies falling out of the wheelchair. Denied any gastrointestinal complaints or complaints. and so was admitted to the hospital. Possible 2nd or extension of cerebrovascular accident in the Broca's area, possible lacunar infarct. Peripheral artery disease, atrial fibrillation with rapid ventricular rate, diabetes mellitus type 2, chronic gouty disease, hypertensive heart disease, chronic diastolic heart failure. She had a head CT without contrast on 03/18/2018 with no acute process, grossly stable multifocal areas of old encephalomalacia, stable periventricular white matter, chronic microvascular disease, no intracranial mass or hemorrhage. Skull was intact and everything else looked okay. She had an MRI of her brain with tiny recent infarctions in the cerebral hemisphere bilaterally in the watershed areas, reason unclear, probable stenosis of the distal-most right vertebral artery, stable extensive chronic ischemic changes. Her brain MRA showed widespread atherosclerotic changes mainly of the carotid siphons, middle cerebral arteries, and the right vertebral artery. MRA of the neck with non-visualization of the right vertebral artery, severe slow flow and near occlusion in that vertebral artery. She reports today that she is feeling comfortable, and she is able to get some food down and swallow and her speech is clear. No pain except for her left foot gives her some discomfort. OBJECTIVE: Vital signs: Temperature 98.1 degrees, pulse 98, respirations 16, blood pressure 142/88. HEENT: Pupils are equal and round. Lungs: Clear in all lung cam. Cardiovascular: Regular rhythm and rate without murmur or S3. Abdomen: Soft. Skin: Warm and dry. DIAGNOSTIC STUDIES: Blood sugars 127, 209, 139, and 195. ASSESSMENT AND PLAN: 1. Expressive aphasia on presentation secondary to transient ischemic attack, which is resolved. 2. History of recurrent cerebral vascular accident and subsequent left-sided hemiparesis. 3. Atrial fibrillation with rapid ventricular response on presentation. This is currently controlled. Actually has more bradycardia during the course of the last 48 hours, and her beta-luna and clonidine were held. I discontinued the clonidine and restarted metoprolol 12.5 mg b.i.d. Heart rate seems to be in 60s and 70s. 4. Mild left ventricular hypertrophy. Echocardiogram shows hypertensive heart disease. Continue blood pressure control. 5. Hypertension. 6. Acute kidney injury on presentation, resolved. 7. Klebsiella pneumoniae urinary tract infection. The patient completed 5 days of IV antibiotics. 8. History of congestive heart failure with preserved ejection fraction. Currently euvolemic. 9. Delirium. During the hospital course, this resolved. 10. Generalized weakness, deconditioning. Hoping to get her to rehabilitation. They would like to [facility]. She has had multiple strokes in the past, discharged from this hospital back on 02/17/2018, came back because aphasic and would like to get some more intensive rehabilitation before she attempts to try and get home. We will call [employer] to request a peer-to- peer about going to [facility]. cc: Paras Dumont MD
--- NOTE | 2018-03-26 14:21 | DISCHARGE SUMMARY ---
ADMISSION DATE: 03/18/2018 DISCHARGE DATE: 03/26/2018 HOSPITAL COURSE: Discharged to go to [facility]. She is a patient of Dr. Elizabeth Mcrae, admitted on 03/18/2018 with expressive aphasia. This is a 62 year old with known history of CVA complicated by left-sided hemiparesis. Last admitted to our facility 3 weeks before this admission with acute cerebrovascular accident. At that time, she was on Eliquis and aspirin was added. Brought in on 03/18/2018. and the report is that she had been having more trouble with speech and expressive aphasia. [place]ornado she had a possible left cerebral vascular accident or extension. The speech seemed to improve. Her other problems are peripheral artery disease, atrial fibrillation, rapid ventricular rate, diabetes mellitus type 2, chronic gouty arthritis, hypertension and chronic diastolic heart failure. She had an echocardiogram done on 03/18/2018. She had some mild mitral regurgitation. Moderate mitral annular calcification. PA pressure was about 40 mmHg. Left ventricular chamber size appeared to be normal size. This suggested mild-to- moderate concentric left ventricular hypertrophy. Her ejection fraction 55% and the right ventricle is normal size as well. No sign of pericardial disease. She had an MRA, an MRI of the brain on 03/19. She had tiny recent infarction in cerebral hemispheres bilaterally in the watershed areas. Probable stenosis of the distal most right vertebral artery. Stable extensive chronic ischemic changes. Her MRA of the brain revealed widespread atherosclerotic disease mainly in the carotid siphons, middle cerebral arteries and right vertebral artery. She showed improvement in her speech and felt she would benefit from going to aggressive rehab for her ambulation strength, as well as speech therapy, and so we will set her up to go to [facility]. DISCHARGE MEDICATIONS: She will be on: 1. Tylenol 650 mg p.o. q. 6 hours. 2. Norvasc 5 mg b.i.d. 3. Eliquis 5 mg b.i.d. 4. Aspirin 325 mg a day. 5. Prinivil 20 mg a day. 6. Metoprolol 12.5 mg b.i.d. 7. Crestor 40 mg at bedtime. cc: Paras Dumont MD
[2018-03-26] MEDS ORDERED: DULCOLAX PR ONE (14:39)
== END 2018-03-26 17:17 | DRG 308 ==
LOC: SUPCPDRO → ED 14:44 → ICU 19:46 → SUATTDRO 19:46 → 4N 03-20 17:16
PROVIDERS: ATTEND Emergency Medicine
CPT/HCPCS: 36569; 70450; 70544; 70548; 70553; 71010; 71045; 80048; 80053; 80061; 81001; 82948; 83036; 83605; 83721; 83880; 84134; 84484; 85025; 85027; 85610; 87040; 87077; 87088; 87186; 92523; 93005; 93010; 93306; 94640; 94761; 96365; 96366; 96375; 97110; 97162; 97167; 97530; 97535; 99285; A9270; A9579; J0360; J0692; J0696; J1815; J2060; J3475; J3480; J7030; J7040; J7050; XXXXX

== ENCOUNTER 2018-12-12 10:32 | Inpatient (IN) ==
[2018-12-12 11:58] LABS: BASO# 0.03 X1000 (0.0-0.2); BASO% 0.3 % (0.0-0.8); HEMATOCRIT 42.7 % (37.0-47.0); IMM GRAN# 0.03 X1000 (0.0-0.04); IMM GRAN% 0.3 % (0.0-0.5); LYMPH# 1.71 X1000 (1.2-3.4); LYMPH% 16.6 % (20.5-51.1); MCH 27.4 PG (27-31); MCHC 30.4 g/dL (33-37); MCV 89.9 FL (81-99); MONO# 0.96 X1000 (0.11-0.59); MONO% 9.3 % (1.7-9.3); MPV 11.3 FL (7.4-10.4); NEUT# 7.47 X1000 (1.4-6.5); NEUT% 72.5 % (42.2-75.2); PLT 298 X1000 (130-400); RBC 4.75 XMIL (4.2-5.4); RDW 13.9 % (11.5-14.5)
[2018-12-12 12:18] LABS: ALB/GLOB RATIO 0.8; CALCIUM 10.2 mg/dL (8.8-10.2); CREATININE 2.1 mg/dL (0.5-0.9); POTASSIUM 3.9 mmol/L (3.5-5.1); TOTAL BILIRUBIN 0.96 mg/dL (0.20-1.00); TOTAL PROTEIN 8.8 g/dL (6.3-8.3)
[2018-12-13 07:04] LABS: BASO# 0.02 X1000 (0.0-0.2); BASO% 0.3 % (0.0-0.8); EOS# 0.08 X1000 (0.0-0.7); EOS% 1.1 % (0.0-10.0); HEMOGLOBIN 13.2 g/dL (12.0-16.0); LYMPH# 1.34 X1000 (1.2-3.4); LYMPH% 18.3 % (20.5-51.1); MCH 27.7 PG (27-31); MCHC 30.7 g/dL (33-37); MCV 90.1 FL (81-99); MONO# 0.82 X1000 (0.11-0.59); MONO% 11.2 % (1.7-9.3); MPV 11.4 FL (7.4-10.4); NEUT# 5.07 X1000 (1.4-6.5); NEUT% 69.1 % (42.2-75.2); PLT 238 X1000 (130-400); RBC 4.77 XMIL (4.2-5.4); RDW 13.9 % (11.5-14.5); WBC 7.33 X1000 (4.8-10.8)
[2018-12-13 07:24] LABS: ALB/GLOB RATIO 0.6; ALBUMIN 3.1 g/dL (3.5-5.0); CALCIUM 9.6 mg/dL (8.8-10.2); CREATININE 2.2 mg/dL (0.5-0.9); POTASSIUM 4.2 mmol/L (3.5-5.1); TOTAL BILIRUBIN 0.7 mg/dL (0.20-1.00); TOTAL PROTEIN 8.2 g/dL (6.3-8.3)
[2018-12-14 07:55] LABS: BASO# 0.02 X1000 (0.0-0.2); BASO% 0.2 % (0.0-0.8); EOS# 0.05 X1000 (0.0-0.7); EOS% 0.6 % (0.0-10.0); HEMATOCRIT 39.8 % (37.0-47.0); IMM GRAN# 0.02 X1000 (0.0-0.04); IMM GRAN% 0.2 % (0.0-0.5); LYMPH% 11.7 % (20.5-51.1); MCH 27.3 PG (27-31); MCHC 30.2 g/dL (33-37); MCV 90.7 FL (81-99); MONO# 0.65 X1000 (0.11-0.59); MONO% 7.6 % (1.7-9.3); MPV 11.4 FL (7.4-10.4); NEUT# 6.78 X1000 (1.4-6.5); NEUT% 79.7 % (42.2-75.2); PLT 250 X1000 (130-400); RBC 4.39 XMIL (4.2-5.4); RDW 13.9 % (11.5-14.5); WBC 8.52 X1000 (4.8-10.8)
[2019-01-03 11:47] VITALS: BP 148/87
== END 2019-01-03 15:39 | DRG 240 ==
LOC: SUATTDRO 10:32 → DIRADM 10:32 → EDIPHOLD 10:48 → 3N 13:53
PROVIDERS: ATTEND Internal Medicine